=== PATIENT | female | born 1965 | race Caucasian/White ===

== ENCOUNTER 2019-07-17 11:16 | Observation (INO) ==
[2019-07-17] MEDS ORDERED: 0.9 % Sodium Chloride 1,000 ML ONE (11:25)
[2019-07-17] MEDS ORDERED: Isovue-370 500 ML BOTTLE IVP ONE ×2 (11:32)
--- NOTE | 2019-07-17 11:41 | Emergency Department Note ---
Disposition Clinical Impression: Chest pain Qualifiers: Chest pain type: unspecified Qualified Code(s): R07.9 - Chest pain, unspecified Disposition: Admitted As Inpatient Condition: Good Time of Disposition: 17:42 Chest Pain HPI - General Chief Complaint: ED Chest Pain Stated Complaint: Chest Pain Time Seen by Provider: 07/17/19 11:20 Source: patient, EMS Mode of arrival: EMS Limitations: no limitations Vital Signs Reviewed: Yes Nursing Notes Reviewed: Yes - History of Present Illness HPI Narrative: 53F with history of abdominal aneurysm which she thinks measured 4.8 cm, which may have been dx a few months ago, was recently hospitalized earlier this week at outside facility for hypokalemia, hypomagnesemia, and dehydration. Outside facility gave her fluids, replaced her electrolytes, and discharged her. Last night, in the middle of the night, she developed epigastric pain that radiates into her chest. She was not sleeping well, but she thinks it woke her from sleep. Since then, she has had abdominal pain. She also notes a one-year history of numbness and tingling in her hands and feet. She denies diabetes. She also notes that she has been lightheaded during the last year as well. Severity scale (1-10): 8 - Related Data Home Medications Medication Instructions Recorded Confirmed Aspirin [Lo-Dose Aspirin EC] 81 mg PO DAILY 07/17/19 07/17/19 Escitalopram [Lexapro] 20 mg PO DAILY 07/17/19 07/17/19 Furosemide [Lasix] 40 mg PO QAM 07/17/19 07/17/19 LORazepam [Ativan] 0.5 mg PO BID PRN 07/17/19 07/17/19 Lisinopril [Zestril] 40 mg PO DAILY 07/17/19 07/17/19 Pantoprazole Sodium [Protonix] 40 mg PO BID 07/17/19 07/17/19 Potassium Chloride [K-Tab ER] 20 meq PO DAILY 07/17/19 07/17/19 Promethazine [Phenergan] 25 mg PO Q6HR PRN 07/17/19 07/17/19 Allergies Allergy/AdvReac Type Severity Reaction Status Date / Time citalopram [From Celexa] Allergy Vomiting Verified 07/17/19 11:21 duloxetine [From Cymbalta] Allergy Vomiting Verified 07/17/19 11:21 Review of Systems: In addition to that documented in the HPI above, the additional ROS was obtained: Constitutional: Denies fevers or chills Eyes: Denies vision changes ENMT: Denies sore throat CV: Reports chest pain Resp: Denies SOB GI: Denies vomiting or diarrhea Reports nausea : Denies painful urination MSK: Denies recent trauma Skin: Denies new rashes Neuro: Denies new numbness or tingling or weakness - Reports stable numbness/tingling in feet, hands, that has been going on for a year Endocrine: Denies unexpected weight loss Heme: Denies bleeding disorders Chest Pain PMH - Past Medical History Medical history: Reports: hypertension, TIA Psychiatric history: Reports: anxiety, depression - Social History Smoking Status: Former smoker Alcohol use: Reports: none Drug use: Reports: none Physical Exam General: No acute distress. Well developed, well nourished. Head: atraumatic, normocephalic. ENT: No conjunctival injection, no scleral icterus. PERRLA. EOMI. Oropharynx non- erythematous. mucous membranes moist. Neuro: No focal deficits, no speech deficit, no facial droop, mentating well. BUE 5/5 Strength, BLE Str 4/5. Claudio UE/LE sensation intact. Cerebellar testing - ataxia evident in left upper extremity, could not perform heel to owusu because she states she is "too weak". CN II-XII intact. Pulm: Lungs CTAB A/P. No wheezes, rales, ronchi. Cardio: RRR no m/r/g. Chest mildly tender to palpation in xiphoid area. Abd: Soft, non-distended. Normoactive bowel sounds. Tender to palpation in ep igastric area. No guarding. Non rigid. Extremities: Radial pulses 2+ claudio, dorsalis pedis 2+ claudio. No LE edema. No cyanosis, clubbing. Skin: warm, dry, intact. No rashes. Psych: Appropriate mood and affect. Answers questions appropriately. Cooperative with exam. - General Limitations: no limitations General appearance: alert, in no apparent distress Course Vital Signs Temperature 98.7 F 07/17/19 11:21 Pulse Rate 111 07/17/19 11:21 Respiratory Rate 18 08/23/19 11:21 Blood Pressure 159/123 08/23/19 11:21 O2 Sat by Pulse Oximetry 100 07/17/19 11:21 Temperature 98 F 07/17/19 19:25 Pulse Rate 101 07/17/19 19:25 Respiratory Rate 18 07/17/19 19:25 Blood Pressure 107/78 07/17/19 19:25 O2 Sat by Pulse Oximetry 99 07/17/19 19:25 Oxygen Delivery Oxygen Delivery Room Air Chest Pain - MDM Narrative Medical decision making narrative: 1141: 53F with pmhx TIAs, HTN, AAA, that presents with epigastric pain radiating into her chest beginning overnight. Concern for stability of AAA exists, and she is ataxic with left UE, and unable to lift her claudio LE right now because of weakness. Will obtain CTA of Head, Neck, and Dissection study. Blood pressures are equal in claudio UE, but diastolic blood pressures elevated. Did not give aspirin as there was concern for dissection, will await CT study and then give aspirin. CT was negative for dissection, gave patient an aspirin. Pt remained ataxic, was found to have Hypokalemia, hypomagnesemic, hypocalcemic. Will replete electrolytes. Additionally, repeat EKG shows QT of 542, will administer calcium gluconate. Pt could benefit from further inpatient neurologic workup, will admit. Pt was admitted to hospitalist, Dr Cox, who agreed to accept the patient to her service. Results of the workup including any imaging and/or labwork was shared with the patient at bedside. Patient was given an opportunity to ask questions at bedside and all of their concerns were addressed. Patient verbalized understanding and agreement with plan of care. Pt remained stable while in the department. - Medical Records Medical records reviewed: Yes I reviewed the patient's medical records. - Lab Data Lab results reviewed: Yes I reviewed the patient's lab results. Result diagrams: 07/17/19 11:41 07/17/19 11:41 Lab Results 07/17/19 07/17/19 07/17/19 Range/Units 11:41 11:41 11:41 WBC 7.1 (4.3-11.1) K/mcL RBC 2.91 L (3.82-4.97) M/mcL Hgb 10.0 L (11.5-15.4) g/dL Hct 29.7 L (35.3-44.9) % MCV 102.1 H (83.0-100.0) fL MCH 34.4 H (28.0-33.3) pg MCHC 33.7 (31.6-35.5) g/dL RDW 16.4 H (11.5-14.5) % Plt Count 377 (140-400) K/mcL MPV 9.3 L (9.4-12.4) fL Immature Gran % 1.0 (0-4) % Seg Neutrophils % 63.9 % Lymphocytes % 20.6 % Monocytes % 13.2 % Eosinophils % 0.6 % Basophils % 0.7 % Neutrophils # 4.5 (1.6-8.9) K/mcL Lymphocytes # 1.5 (0.6-4.6) K/mcL Monocytes # 0.9 (0.0-1.3) K/mcL Eosinophils # 0.0 (0.0-0.6) K/mcL Basophils # 0.1 (0.0-0.2) K/mcL Sodium 137 (136-145) mEq/L Potassium 3.2 L (3.5-5.1) mEq/L Chloride 95 L (98-107) mEq/L Carbon Dioxide 30 H (23-29) mEq/L BUN 5 L (6-20) mg/dL Creatinine 0.51 L (0.60-1.20) mg/dL Est GFR ( Amer) > 60 (> 60) Est GFR (Non-Af Amer) > 60 (> 60) BUN/Creatinine Ratio 10 (6-26) Glucose 101 (70-105) mg/dL Calculated Osmolality 281 (280-300) Calcium 8.1 L (8.6-10.3) mg/dL Magnesium 1.4 L (1.6-2.6) mg/dL Troponin I < 0.03 (< 0.04) ng/mL TSH 4.159 (0.340-5.600) mcIU/mL Urine Color (Yellow) Urine Clarity (Clear) Urine pH (5.0-8.0) pH Units Ur Specific [place] (1.010-1.025) Urine Protein (Neg-Trace) mg/dL Urine Glucose (UA) (Normal) mg/dL Urine Ketones (Negative) mg/dL Urine Blood (Negative) Urine Nitrite (Negative) Urine Bilirubin (Negative) Urine Urobilinogen (Normal) mg/dL Ur Leukocyte Esterase (Negative) Urine Microscopic RBC (0-3) per hpf Urine Microscopic WBC (0-3) per hpf Ur Squamous Epith Cells (None-Few) per lpf Urine Bacteria (None-Few) per hpf Hyaline Casts (None-Few) per lpf Ur Culture Indicated? (NO) 07/17/19 Range/Units 12:04 WBC (4.3-11.1) K/mcL RBC (3.82-4.97) M/mcL Hgb (11.5-15.4) g/dL Hct (35.3-44.9) % MCV (83.0-100.0) fL MCH (28.0-33.3) pg MCHC (31.6-35.5) g/dL RDW (11.5-14.5) % Plt Count (140-400) K/mcL MPV (9.4-12.4) fL Immature Gran % (0-4) % Seg Neutrophils % % Lymphocytes % % Monocytes % % Eosinophils % % Basophils % % Neutrophils # (1.6-8.9) K/mcL Lymphocytes # (0.6-4.6) K/mcL Monocytes # (0.0-1.3) K/mcL Eosinophils # (0.0-0.6) K/mcL Basophils # (0.0-0.2) K/mcL Sodium (136-145) mEq/L Potassium (3.5-5.1) mEq/L Chloride (98-107) mEq/L Carbon Dioxide (23-29) mEq/L BUN (6-20) mg/dL Creatinine (0.60-1.20) mg/dL Est GFR ( Amer) (> 60) Est GFR (Non-Af Amer) (> 60) BUN/Creatinine Ratio (6-26) Glucose (70-105) mg/dL Calculated Osmolality (280-300) Calcium (8.6-10.3) mg/dL Magnesium (1.6-2.6) mg/dL Troponin I (< 0.04) ng/mL TSH (0.340-5.600) mcIU/mL Urine Color Yellow (Yellow) Urine Clarity Cloudy A (Clear) Urine pH 8.0 (5.0-8.0) pH Units Ur Specific [place] < 1.005 L (1.010-1.025) Urine Protein Negative (Neg-Trace) mg/dL Urine Glucose (UA) Normal (Normal) mg/dL Urine Ketones Negative (Negative) mg/dL Urine Blood Negative (Negative) Urine Nitrite Negative (Negative) Urine Bilirubin Negative (Negative) Urine Urobilinogen Normal (Normal) mg/dL Ur Leukocyte Esterase Large H (Negative) Urine Microscopic RBC 0-3 (0-3) per hpf Urine Microscopic WBC TNTC H (0-3) per hpf Ur Squamous Epith Cells Many H (None-Few) per lpf Urine Bacteria Many H (None-Few) per hpf Hyaline Casts None Seen (None-Few) per lpf Ur Culture Indicated? YES A (NO) - Radiology Data Radiology results reviewed: Yes I reviewed the patient's radiology results. Chest X-Ray 07/17/19 11:21 IMPRESSION: No acute cardiopulmonary disease. D/ / 07/17/2019 11:59:18 Inderjit Cope MD / Louise Colón Interpreting Provider: Inderjit Cope MD Dissection 07/17/19 11:32 IMPRESSION: 1. No evidence thoracic aortic dissection. There is aneurysmal dilation of the ascending thoracic aorta as described above. 2. No evidence of abdominal aortic aneurysm or dissection. 3. No acute cardiopulmonary process. 4. Emphysema. 5. Severe fatty infiltration of the liver. 6. Mild colonic diverticulosis without evidence of diverticulitis. 7. Status post hysterectomy. 8. No acute process in the abdomen/pelvis identified. D/ / Amarjit Swain MD / Amarjit Swain MD Interpreting Provider: Amarjit Swain MD Head CTA 07/17/19 11:32 IMPRESSION: No intracranial large artery focal high-grade stenosis, occlusion or aneurysm. No stenosis of the bilateral cervical internal carotid arteries per NASCET criteria. Bilateral carotid bulb atherosclerotic plaque. Patent bilateral vertebral arteries. Mild chronic small vessel ischemic disease. Small old right putamen remote lacunar infarct. No acute intracranial hemorrhage. D/ / Eren Sessions / Eren Sessions Interpreting Provider: Eren Sessions Neck CTA 07/17/19 11:32 IMPRESSION: No intracranial large artery focal high-grade stenosis, occlusion or aneurysm. No stenosis of the bilateral cervical internal carotid arteries per NASCET criteria. Bilateral carotid bulb atherosclerotic plaque. Patent bilateral vertebral arteries. Mild chronic small vessel ischemic disease. Small old right putamen remote lacunar infarct. No acute intracranial hemorrhage. D/ / Eren Sessions / Eren Sessions Interpreting Provider: Eren Sessions - EKG Data EKG attestation: Yes I reviewed and interpreted this EKG. EKG results narrative: Sinus tachycardia with a rate of 118 without evidence of STEMI or other dysrhythmia. QTC of 501 and prolonged, other intervals WNL. No ST segment elevation or depression. 1652: HR 101, rhythm sinus tachycardia, axis normal. [place] 150, QRS 93, QTc [address] elevation or depression. Heart Score - Score History: Moderately Suspicious EKG: Normal Age: 45-65 Risk Factors: 1-2 risk factors Troponin: Less than normal limit HEART Score Total: 3 Attestation Statement - Attestation Attestation: I, Garrison Dawkins, examined this patient and my medical decision-making was reviewed with the CLINICAL LABORATORY SERVICE TEACHER/PA/Advanced Practice Nurse/Resident Physician. I agree with the documented findings, disposition and treatment plan as described except to the extent set forth below. 53-year-old female presents emergency Department with concerns of chest pain as well as weakness, fatigue, paresthesias in the bilateral upper and lower extremities and difficulty with ambulation. Patient states she has difficulty with feeding herself as she has poor coordination. Patient states that this is occurred over the past 1-2 weeks. She was admitted to [facility] for evaluation of epigastric pain. She had repeat troponins which were negative and was diagnosed with hypokalemia, hypomagnesemia. Patient is mildly tachycardic on initial evaluation today. She does not have evidence of STEMI. She reported pain in her chest and states that she has a history of aortic aneurysm. She had equal bilateral upper extremity blood pressures which were elevated but equal. Patient was given IV fluids and pain medication which improved her blood pressure and her heart rate. Patient care was delayed because of inability to obtain CT secondary to lack of IV access. During evaluation the patient noted that she has been having difficulty with ambulation is fallen multiple times at home. She failed the finger to nose testing on our exam in the emergency department. We obtained a CT of the head, neck to rule out vertebral artery dissection as well as possible intracranial hemorrhage from trauma versus str vita. Patient does report having vertiginous symptoms with movement of her head. CT shows aneurysm which has not significantly changed from previous. There is no evidence of dissection. Patient was updated regarding laboratory and CT results. Patient will be admitted to the hospitalist for further care and evaluation.
[2019-07-17 11:53] LABS: Basophils # 0.1 K/mcL (0.0-0.2); Basophils % 0.7 %; Eosinophils % 0.6 %; Hematocrit 29.7 % (35.3-44.9); Lymphocytes # 1.5 K/mcL (0.6-4.6); Lymphocytes % 20.6 %; Mean Corpuscular HGB Conc 33.7 g/dL (31.6-35.5); Mean Corpuscular Hemoglobin 34.4 pg (28.0-33.3); Mean Corpuscular Volume 102.1 fL (83.0-100.0); Mean Platelet Volume 9.3 fL (9.4-12.4); Monocytes # 0.9 K/mcL (0.0-1.3); Monocytes % 13.2 %; Neutrophils # 4.5 K/mcL (1.6-8.9); Platelet Count 377 K/mcL (140-400); Red Blood Count 2.91 M/mcL (3.82-4.97); Red Cell Distribution Width 16.4 % (11.5-14.5); Segmented Neutrophils % 63.9 %; White Blood Count 7.1 K/mcL (4.3-11.1)
[2019-07-17 12:14] LABS: Bilirubin,Urine Negative (Negative); Blood,Urine Negative (Negative); Clarity,Urine Cloudy (Clear); Color,Urine Yellow (Yellow); Glucose,Urine (UA) Normal (Normal); Ketones,Urine Negative (Negative); Leukocyte Esterase,Urine Large (Negative); Nitrite,Urine Negative (Negative); Protein,Urine Negative (Neg-Trace); Specific Gravity,Urine < 1.005 (1.010-1.025); Urobilinogen,Urine Normal (Normal)
[2019-07-17 12:15] LABS: Magnesium 1.4 mg/dL (1.6-2.6)
[2019-07-17 12:15] LABS: Bacteria,Urine Many per hpf (None-Few); Hyaline Casts,Urine None Seen per lpf (None-Few); RBC,Urine 0-3 per hpf (0-3); Squamous Epithelial Cell,Urine Many per lpf (None-Few); WBC,Urine TNTC per hpf (0-3)
[2019-07-17 12:16] LABS: BUN/Creatinine Ratio 10 (6-26); Blood Urea Nitrogen 5 mg/dL (6-20); Calcium 8.1 mg/dL (8.6-10.3); Carbon Dioxide 30 mEq/L (23-29); Chloride 95 mEq/L (98-107); Glucose 101 mg/dL (70-105); Osmolality,Calculated 281 (280-300); Potassium 3.2 mEq/L (3.5-5.1); Sodium 137 mEq/L (136-145); Troponin I < 0.03 ng/mL (< 0.04); eGFR For African Americans > 60 (> 60); eGFR For Non-African Americans > 60 (> 60)
[2019-07-17] MEDS ORDERED: Morphine Sulfate 2 MG/ML SYRINGE IVP ONE (12:53)
[2019-07-17] MEDS ORDERED: Ondansetron 4 MG/2 ML VIAL IVP ONE (12:54)
[2019-07-17 13:10] LABS: Thyroid Stimulating Hormone 4.159 mcIU/mL (0.340-5.600)
[2019-07-17] MEDS ORDERED: 0.9 % Sodium Chloride 1,000 ML IVC ONE (15:03)
[2019-07-17] MEDS ORDERED: *HR* HYDROmorphone (PF) 1 MG/ML SYRINGE IVP ONE (15:37)
[2019-07-17] MEDS ORDERED: Calcium Gluconate 1gm/50mL 2 G/100 ML BAG IVPB ONE (16:53)
[2019-07-17] MEDS ORDERED: Magnesium Sulfate 1 GM in D5% in Water 100 ML IVPB ONE (16:53)
[2019-07-17] MEDS ORDERED: cefTRIAXone 1,000 MG in Water for inj. (sterile) 10 ML IVP ONE (16:58)
[2019-07-17] MEDS ORDERED: Calcium Gluconate 1gm/50mL 2 GM/100 ML BAG IVPB ONE (17:03)
--- NOTE | 2019-07-17 17:30 | Internal Med History&Physical ---
Date of Encounter: 07/17/19 Time of Encounter: 18:00 Internal Medicine - H&P: HPI Chief complaint: Epigastric pain Admitted From: Emergency Dept Plans for Post Hospital Care: Home History of present illness: Ms. Lock is a 53 year old female with a past medical history significant for GERD, hypertension, presented to the emergency department because of the chest pain, there has been there for almost a year, worsened last night. Patient describes the pain in the onset last night, midsternal, nonradiating, no aggra vating or relieving factors, feels like pressure. Patient has been having this pain for almost a year. Endorses nausea associated with the pain. Denies any vertigo. Denies history of WI, orthopnea, exertional dyspnea. Patient also complains of numbness and tingling sensation in her hands and feet for almost one year which has been progressively worsening. She feels that she has been losing her strength and her hands and feet are very weak. She also complains that sometimes she drops things because of the weakness. Patient is currently in the outside hospital because of electrolyte abnormalities, repleted and was discharged. Patient otherwise hemodynamically stable in the ED. Because of the concern of stroke, patient got a CT scan of the head and neck. CAT scan of the head was negative for any bleeding. CTA was negative for any high-grade stenosis, lesion or aneurysm. She also got CTA of the chest dissection protocol because of the history of aortic aneurysm. CTA did not show any dissection. Aneurysm measuring 4.2 cm of ascending aorta was noted that she has been present previously. There was also severe fatty infiltration of the liver. Lab work was positive for anemia, hypokalemia. UA showed leukocyte esterase activity. Patient was admitted for further management. Past Med Surg Social Fam HX - Past Medical History Medical history: hypertension, TIA Additional medical history: AAA 4.8CM Psychiatric history: anxiety, depression - Past Surgical History Surgical History: no surgical history - Social History Smoking Status: Former smoker Smokeless Tobacco Status: No Alcohol use: none Drug use: none - Additional Family History Additional family history: Patient mother is healthy without any heart problems. Patient father of WI at the age of 48. Internal Medicine - H&P: Meds Allergy/AdvReac Type Severity Reaction Status Date / Time citalopram [From Celexa] Allergy Vomiting Verified 07/17/19 11:21 duloxetine [From Cymbalta] Allergy Vomiting Verified 07/17/19 11:21 All Systems PM: A 10-system review of systems was performed and is negative for pertinent fi ndings except as documented above in the HPI. Review of systems: General: Negative for fever, chills, rigors. HEENT: Negative for neck swelling, discharge from nose, discharge from ears. EYES: Negative for any discharge from the eyes. Respiratory: Negative for shortness of breath, orthopnea, exertional dyspnea. Cardiovascular: See HPI Gastrintestical: See HPI Genitourinary: Negative for dysuria, hematuria, nocturia, increased frequency of urine. Hematological: Negative for blood loss, negative for active cancer. Neurological: Negative for headache, dizziness, blurry vision, loss os power and sensations. Endocrinology: Negative for constipation, polyuria, polydipsia. Integumentary: Negative for rash, wounds, ulcers. Psychiatric: Negative for anxiety or depression. - Constitutional Vitals: Temp Pulse Resp BP Pulse Ox 98.7 F 101 18 121/98 98 07/17/19 11:21 07/17/19 15:37 07/17/19 15:37 07/17/19 15:37 07/17/19 15:37 Exam: General: Alert and oriented, no physical distress, able to follow commands. HEENT: No thyromegaly, no lymphadenopathy, no discharge. Eyes: No discharge. Normal conjuctiva, no icterus Respiratory: Normal vesicular breathing, no added sounds, breathing equal in both sides. CVS: Normal heart sounds, no murmurs, regular rhthm, no edema Extremities: No peripheral edema, peripheral pulses intact. Lymph nodes: No lymphadenopathy Gastrointestinal: Soft, nontender abdomen, normal abdominal sounds. No distention noted. Genitourinary: No paravertebral tenderness. Skin: No rash, ulcers or wound. Neurological: Alert and oriented. No focal deficits. Cranial nerves II-XII intact. Internal Med - H&P Results - Labs CBC & Chem 7: 07/17/19 11:41 07/17/19 11:41 Labs: Short CBC 07/17/19 Range/Units 11:41 WBC 7.1 (4.3-11.1) K/mcL Hgb 10.0 L (11.5-15.4) g/dL Hct 29.7 L (35.3-44.9) % Plt Count 377 (140-400) K/mcL Neutrophils # 4.5 (1.6-8.9) K/mcL BMP 07/17/19 11:41 Sodium 137 Potassium 3.2 L Chloride 95 L Carbon Dioxide 30 H BUN 5 L Creatinine 0.51 L Glucose 101 Calcium 8.1 L Cardiac Enzymes 07/17/19 Range/Units 11:41 Troponin I < 0.03 (< 0.04) ng/mL Urine 07/17/19 Range/Units 12:04 Urine Color Yellow (Yellow) Urine Clarity Cloudy A (Clear) Urine pH 8.0 (5.0-8.0) pH Units Ur Specific [place] < 1.005 L (1.010-1.025) Urine Protein Negative (Neg-Trace) mg/dL Urine Glucose (UA) Normal (Normal) mg/dL - Impressions ITS Impressions Chest X-Ray 07/17/19 11:21 IMPRESSION: No acute cardiopulmonary disease. D/ / 07/17/2019 11:59:18 Inderjit Cope MD / Louise Colón Interpreting Provider: Inderjit Cope MD Dissection 07/17/19 11:32 IMPRESSION: 1. No evidence thoracic aortic dissection. There is aneurysmal dilation of the ascending thoracic aorta as described above. 2. No evidence of abdominal aortic aneurysm or dissection. 3. No acute cardiopulmonary process. 4. Emphysema. 5. Severe fatty infiltration of the liver. 6. Mild colonic diverticulosis without evidence of diverticulitis. 7. Status post hysterectomy. 8. No acute process in the abdomen/pelvis identified. D/ / Amarjit Swain MD / Amarjit Swain MD Interpreting Provider: Amarjit Swain MD Head CTA 07/17/19 11:32 IMPRESSION: No intracranial large artery focal high-grade stenosis, occlusion or aneurysm. No stenosis of the bilateral cervical internal carotid arteries per NASCET criteria. Bilateral carotid bulb atherosclerotic plaque. Patent bilateral vertebral arteries. Mild chronic small vessel ischemic disease. Small old right putamen remote lacunar infarct. No acute intracranial hemorrhage. D/ / Eren Sessions / Eren Sessions Interpreting Provider: Eren Estes Neck CTA 07/17/19 11:32 IMPRESSION: No intracranial large artery focal high-grade stenosis, occlusion or aneurysm. No stenosis of the bilateral cervical internal carotid arteries per NASCET criteria. Bilateral carotid bulb atherosclerotic plaque. Patent bilateral vertebral arteries. Mild chronic small vessel ischemic disease. Small old right putamen remote lacunar infarct. No acute intracranial hemorrhage. D/ / Eren Sessions / Eren Sessions Interpreting Provider: Eren Estes - Assessment and Plan (1) Chest pain Current Visit: Yes Status: Acute Assessment and plan: -EKG did not show any ischemic changes. Troponin levels were normal. Patient currently denies chest pain. Low probability for ACS. Obtained echocardiography. Continue aspirin. Depending upon the echocardiographic results, will decide about a cardiology consult. Qualifiers: Chest pain type: unspecified Qualified Code(s): R07.9 - Chest pain, unspecified (2) UTI (urinary tract infection) Current Visit: Yes Status: Acute Assessment and plan: UA positive. Urine cultures pending. Start the patient on ceftriaxone. Qualifiers: Urinary tract infection type: site unspecified Hematuria presence: without hematuria Qualified Code(s): N39.0 - Urinary tract infection, site not sp ecified (3) Abnormal EKG Current Visit: Yes Status: Acute Assessment and plan: Prolonged QTC of 542 after giving the patient ondansetron avoid QTC prolonging drugs. Patient was given calcium gluconate and magnesium sulfate in the ED. telemetry. Optimize electrolytes. (4) Nausea Current Visit: Yes Status: Acute Assessment and plan: Phenergan for the nausea. Avoid Zofran. (5) Weakness of distal arms and legs Current Visit: Yes Status: Acute Assessment and plan: Etiology is unclear. Progressive worsening. We will obtain folate and vitamin B12 levels. Because of the history of TIA, and the patient nausea, updated MRI of the brain to rule out any stroke. Neurology consult. PT/OT. (6) Smoking addiction Current Visit: Yes Status: Acute Assessment and plan: According to the patient, she quit smoking yesterday. Smokes 3 packs per day. Nicotine patches noted. Counseled about the adverse effect of smoking. (7) Alcohol abuse Current Visit: Yes Status: Acute Assessment and plan: CT scan scan consistent with fatty infiltration of the liver. -Patient has been drinking alcohol for a long time. According to her, she is no drink anymore. No signs of withdrawal at this point. Continue to monitor. obtain liver function test tomorrow. (8) Anemia Current Visit: Yes Status: Acute Assessment and plan: Etiology unclear. -Patient mentioned that she had EGD this year which showed some bleeding but it was probably fixed. Obtain iron studies. Obtain B12 and folate. -No signs of active bleeding. Qualifiers: Anemia type: unspecified type Qualified Code(s): D64.9 - Anemia, unspecified (9) Hypokalemia Current Visit: Yes Status: Acute Assessment and plan: Potassium of 3.2 at the presentation. Etiology unclear. Continue to repeat. -Repeat The level tomorrow. (10) Hypomagnesemia Current Visit: Yes Status: Acute Assessment and plan: -Mag of 1.4 -Rpeleted in ED -Pratima contributing to the QTc -Repeat levels tomorrow (11) AAA (abdominal aortic aneurysm) Current Visit: Yes Status: Acute Assessment and plan: -Hx of AAA -Stabke -Advised to quit smoking -Outpt follow up recommended Qualifiers: Presence of rupture: without rupture Qualified Code(s): I71.4 - Abdominal aortic aneurysm, without rupture - Time Spent With Patient Total time spent is greater than 50% in coordination of care (as documented) at patient's floor/unit and/or counseling patient:
[2019-07-17] MEDS ORDERED: Aspirin 325 MG TABLET PO ONE (17:35)
[2019-07-17] MEDS ORDERED: Naloxone 0.4 MG/ML INJ IVP PRN (17:55)
[2019-07-17] MEDS ORDERED: traMADol 50 MG TABLET PO PRN (17:55)
[2019-07-17] MEDS ORDERED: *HR* OxyCODONE Immed Rel 5 MG TABLET PO PRN (17:55)
[2019-07-17] MEDS ORDERED: Acetaminophen 325 MG TABLET PO PRN (17:55)
[2019-07-17] MEDS: *HR* Heparin 5,000 UNIT/ML VIAL SQ SCH (19:41)
[2019-07-17] MEDS: Ringers Solution, Lactated 1,000 ML IVC SCH (19:43)
[2019-07-17] MEDS: Nicotine 21 MG PATCH.TD24 TD SCH (19:43)
[2019-07-17] MEDS: *HR* Promethazine 25 MG/ML VIAL IVP PRN (19:49)
[2019-07-17] MEDS ORDERED: *HR* LORazepam 0.5 MG TABLET PO ONE (21:31)
[2019-07-17] MEDS: *HR* HYDROcodone/Acet 5/325 mg TABLET PO PRN (23:06)
[2019-07-18 01:31] LABS: Basophils # 0.1 K/mcL (0.0-0.2); Basophils % 1.4 %; Eosinophils # 0.2 K/mcL (0.0-0.6); Eosinophils % 2.3 %; Hematocrit 27.6 % (35.3-44.9); Immature Granulocytes % 0.6 % (0-4); Lymphocytes # 2.8 K/mcL (0.6-4.6); Lymphocytes % 40.3 %; Mean Corpuscular HGB Conc 32.6 g/dL (31.6-35.5); Mean Corpuscular Volume 107.4 fL (83.0-100.0); Mean Platelet Volume 9.3 fL (9.4-12.4); Monocytes # 0.9 K/mcL (0.0-1.3); Monocytes % 12.9 %; Neutrophils # 2.9 K/mcL (1.6-8.9); Platelet Count 338 K/mcL (140-400); Red Blood Count 2.57 M/mcL (3.82-4.97); Red Cell Distribution Width 16.8 % (11.5-14.5); Segmented Neutrophils % 42.5 %; White Blood Count 6.9 K/mcL (4.3-11.1)
[2019-07-18 01:37] LABS: Prothrombin Time 11.8 Seconds (9.4-12.1)
[2019-07-18 01:40] LABS: Activated Partial Thrombo Time 29.7 Seconds (26.0-36.0)
[2019-07-18 01:50] LABS: Albumin 2.5 g/dL (3.5-5.7); Albumin/Globulin Ratio 1.1 (1.1-2.2); Bilirubin,Direct 0.7 mg/dL (0.0-0.2); Bilirubin,Indirect 0.5 mg/dL (0.0-1.2); Bilirubin,Total 1.2 mg/dL (0.3-1.0); Globulin 2.3 g/dL (2.4-3.5); Total Protein 4.8 g/dL (6.4-8.9)
[2019-07-18 01:56] LABS: % Iron Saturation 48 % (15-50); BUN/Creatinine Ratio 7 (6-26); Blood Urea Nitrogen 4 mg/dL (6-20); Calcium 8.1 mg/dL (8.6-10.3); Carbon Dioxide 22 mEq/L (23-29); Chloride 104 mEq/L (98-107); Glucose 90 mg/dL (70-105); Iron 72 mcg/dL (50-170); Magnesium 1.8 mg/dL (1.6-2.6); Osmolality,Calculated 282 (280-300); Phosphorous 4.3 mg/dL (2.7-4.5); Potassium 4.4 mEq/L (3.5-5.1); Sodium 138 mEq/L (136-145); Transferrin 107 mg/dL (203-362); eGFR For African Americans > 60 (> 60); eGFR For Non-African Americans > 60 (> 60)
[2019-07-18 02:14] LABS: Folate 2.5 ng/mL (3.0-16.0)
[2019-07-18 02:17] LABS: Ferritin 271 ng/mL (10-120)
[2019-07-18] MEDS: *HR* Promethazine 25 MG/ML VIAL IVP PRN (03:56)
[2019-07-18] MEDS: *HR* Heparin 5,000 UNIT/ML VIAL SQ SCH ×2 (05:42→18:18)
[2019-07-18] MEDS: *HR* HYDROcodone/Acet 5/325 mg TABLET PO PRN ×3 (05:47→18:15)
[2019-07-18] MEDS ORDERED: Perflutren Lipid Microsphere 1.3 ML in 0.9 % Sodium Chloride 8.7 ML IVP ONE (07:22)
[2019-07-18] MEDS ORDERED: Folic Acid 1 MG in D5% in Water 50 ML IVPB STA (08:00)
[2019-07-18] MEDS ORDERED: Lisinopril 20 MG TABLET PO SCH (09:00)
[2019-07-18] MEDS ORDERED: Aspirin 81 MG TAB.CHEW PO SCH (09:00)
[2019-07-18 09:34] LABS: Basophils # 0.1 K/mcL (0.0-0.2); Basophils % 1.3 %; Eosinophils # 0.1 K/mcL (0.0-0.6); Eosinophils % 2.2 %; Hematocrit 28.2 % (35.3-44.9); Immature Granulocytes % 0.6 % (0-4); Lymphocytes # 2.3 K/mcL (0.6-4.6); Lymphocytes % 42.5 %; Mean Corpuscular HGB Conc 31.9 g/dL (31.6-35.5); Mean Corpuscular Hemoglobin 34.9 pg (28.0-33.3); Mean Corpuscular Volume 109.3 fL (83.0-100.0); Mean Platelet Volume 9.4 fL (9.4-12.4); Monocytes # 0.7 K/mcL (0.0-1.3); Monocytes % 12.6 %; Neutrophils # 2.2 K/mcL (1.6-8.9); Platelet Count 367 K/mcL (140-400); Red Blood Count 2.58 M/mcL (3.82-4.97); Red Cell Distribution Width 16.9 % (11.5-14.5); Segmented Neutrophils % 40.8 %; White Blood Count 5.4 K/mcL (4.3-11.1)
[2019-07-18] MEDS: Nicotine 21 MG PATCH.TD24 TD SCH (09:41)
[2019-07-18] MEDS: Thiamine (B-1) 100 MG in D5% in Water 50 ML IVPB SCH (09:41)
[2019-07-18] MEDS ORDERED: *HR* LORazepam 1 MG TABLET PO PRN (09:52)
[2019-07-18] MEDS ORDERED: *HR* LORazepam 2 MG/ML VIAL IVP PRN (10:54)
--- NOTE | 2019-07-18 11:29 | Internal Med Progress Note ---
Hospitalist Progress Note - Encounter Date of Encounter: 07/18/19 Time of Encounter: 11:00 - Subjective Interval History: Patient was seen at bedside. Complaining of the epigastric pain. Also having the tremors. Denies shortness of breath. Endorses pain in the hands and feet which have been there previously but no relief in them. Denies dizziness. Denies fever, chills, rigors. No acute overnight events. - Exam Vitals: Temp Pulse Resp BP Pulse Ox 97.6 F 101 16 144/87 100 07/18/19 07:20 07/18/19 07:20 07/18/19 07:20 07/18/19 07:20 07/18/19 07:20 Exam: General: Alert and oriented, no physical distress, able to follow commands. HEENT: No thyromegaly, no lymphadenopathy, no discharge. Eyes: No discharge. Normal conjuctiva, no icterus Respiratory: Normal vesicular breathing, no added sounds, breathing equal in both sides. CVS: Normal heart sounds, no murmurs, regular rhthm, no edema Extremities: No peripheral edema, peripheral pulses intact. Lymph nodes: No lymphadenopathy Gastrointestinal: Soft, nontender abdomen, normal abdominal sounds. No distention noted. Genitourinary: No paravertebral tenderness. Skin: No rash, ulcers or wound. Neurological: Alert and oriented. No focal deficits. Cranial nerves II-XII intact. - Assessment and Plan (1) Weakness of distal arms and legs Current Visit: Yes Status: Acute Assessment and Plan: Etiology is unclear. 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 Patient folic acid levels are very low, she is also having macrocytic anemia. Patient mentions that she has been drinking for the past 1-2 years of good amount of alcohol but denies any drinking last 2-3 weeks. Most likely, patient has been drinking considering the progressive worsening of neuropathy and as the patient is showing signs of withdrawal. . Full details are very low at 2.5. Vitamin D level is normal. MRI of the head was negative. Neurology on board. Appreciate recommendations. PT/OT recommending rehabilitation. Patient will need transfer to rehabilitation facility. At this point considering the patient is having the pain and the weakness of the distal arms and eczema start the patient on gabapentin 100 mg at bedtime for the neuropathy. Advised the patient to avoid alcohol. (2) Chest pain Current Visit: Yes Status: Acute Assessment and Plan: -EKG did not show any ischemic changes. Troponin levels were normal. Patient currently denies chest pain. Low probability for ACS. Echocardiography also did not show any wall motion abnormalities and a normal ejection fraction. Continue to monitor.. (3) UTI (urinary tract infection) Current Visit: Yes Status: Acute Assessment and Plan: UA positive. Urine cultures pending. Continue the patient on ceftriaxone. (4) Abnormal EKG Current Visit: Yes Status: Acute Assessment and Plan: Had prolonged QTC which have been resolving. avoid QTC prolonging drugs. Optimize electrolytes. (5) Nausea Current Visit: Yes Status: Acute Assessment and Plan: Phenergan for the nausea. Avoid Zofran. (6) Smoking addiction Current Visit: Yes Status: Acute Assessment and Plan: According to the patient, she quit smoking yesterday. Smokes 3 packs per day. Nicotine patches ordered Counseled about the adverse effect of smoking. (7) Alcohol abuse Current Visit: Yes Status: Acute Assessment and Plan: CT scan scan consistent with fatty infiltration of the liver. AST elevated. elevated alkaline phosphatase and bilirubin. Advised the patient to quit drinking. -outpatient follow-up with a milk tester. Because of the signs of withdrawl, patient has been started on CIWA protocol. (8) Anemia Current Visit: Yes Status: Acute Assessment and Plan: Likley due to folic acid deficieicny -Ordered folic acid repletion. (9) Hypokalemia Current Visit: Yes Status: Acute Assessment and Plan: Normal levels today -Repeat levels tomorrow (10) Hypomagnesemia Current Visit: Yes Status: Acute Assessment and Plan: -Mag of 1.8 tday -Contnue to monitor (11) AAA (abdominal aortic aneurysm) Current Visit: Yes Status: Acute Assessment and Plan: -Hx of AAA -Stabke -Advised to quit smoking -Outpt follow up recommended - Time Spent with Patient Total time spent is greater than 50% in coordination of care (as documented) at patient's floor/unit and/or counseling patient: Internal Medicine: Result - Labs CBC & Chem 7: 07/18/19 08:46 07/18/19 00:26 Labs: Short CBC 07/17/19 07/18/19 07/18/19 Range/Units 11:41 00:26 08:46 WBC 7.1 6.9 5.4 (4.3-11.1) K/mcL Hgb 10.0 L 9.0 L 9.0 L (11.5-15.4) g/dL Hct 29.7 L 27.6 L 28.2 L (35.3-44.9) % Plt Count 377 338 367 (140-400) K/mcL Neutrophils # 4.5 2.9 2.2 (1.6-8.9) K/mcL BMP 07/17/19 07/18/19 11:41 00:26 Sodium 137 138 Potassium 3.2 L 4.4 D Chloride 95 L 104 Carbon Dioxide 30 H 22 L BUN 5 L 4 L Creatinine 0.51 L 0.55 L Glucose 101 90 Calcium 8.1 L 8.1 L Cardiac Enzymes 07/17/19 Range/Units 11:41 Troponin I < 0.03 (< 0.04) ng/mL Liver Function 07/18/19 Range/Units 00:26 Total Bilirubin 1.2 H (0.3-1.0) mg/dL Direct Bilirubin 0.7 H (0.0-0.2) mg/dL AST 54 H (13-39) Units/L ALT 29 (7-52) Units/L Alkaline Phosphatase 119 H (34-104) Units/L Albumin 2.5 L (3.5-5.7) g/dL Urine 07/17/19 Range/Units 12:04 Urine Color Yellow (Yellow) Urine Clarity Cloudy A (Clear) Urine pH 8.0 (5.0-8.0) pH Units Ur Specific [place] < 1.005 L (1.010-1.025) Urine Protein Negative (Neg-Trace) mg/dL Urine Glucose (UA) Normal (Normal) mg/dL - ABG Interpretation ABG results: PT/INR, D-dimer PT 11.8 Seconds (9.4-12.1) 07/18/19 00:26 - Impressions Impressions Chest X-Ray 07/17/19 11:21 IMPRESSION: No acute cardiopulmonary disease. D/ / 07/17/2019 11:59:18 Inderjit Cope MD / Louise Colón Interpreting Provider: Inderjit Cope MD Dissection 07/17/19 11:32 IMPRESSION: 1. No evidence thoracic aortic dissection. There is aneurysmal dilation of the ascending thoracic aorta as described above. 2. No evidence of abdominal aortic aneurysm or dissection. 3. No acute cardiopulmonary process. 4. Emphysema. 5. Severe fatty infiltration of the liver. 6. Mild colonic diverticulosis without evidence of diverticulitis. 7. Status post hysterectomy. 8. No acute process in the abdomen/pelvis identified. D/ / Amarjit Swain MD / Amarjit Swain MD Interpreting Provider: Amarjit Swain MD Head CTA 07/17/19 11:32 IMPRESSION: No intracranial large artery focal high-grade stenosis, occlusion or aneurysm. No stenosis of the bilateral cervical internal carotid arteries per NASCET criteria. Bilateral carotid bulb atherosclerotic plaque. Patent bilateral vertebral arteries. Mild chronic small vessel ischemic disease. Small old right putamen remote lacunar infarct. No acute intracranial hemorrhage. D/ / Eren Sessions / Eren Sessions Interpreting Provider: Eren Estes Neck CTA 07/17/19 11:32 IMPRESSION: No intracranial large artery focal high-grade stenosis, occlusion or aneurysm. No stenosis of the bilateral cervical internal carotid arteries per NASCET criteria. Bilateral carotid bulb atherosclerotic plaque. Patent bilateral vertebral arteries. Mild chronic small vessel ischemic disease. Small old right putamen remote lacunar infarct. No acute intracranial hemorrhage. D/ / Eren Sessions / Eren Sessions Interpreting Provider: Eren Estes Echocardiogram 07/17/19 17:59 Impressions: LVEF 60%. Normal LV chamber size, wall thickness and function. Normal left ventricular diastolic function. Normal right ventricular structure and function. No evidence of PFO with agitated saline contrast. No evidence of pulmonary hypertension. No significant valvular dysfunction Findings: Study Quality * Technically sub-optimal due to poor echocardiographic windows. ECG Findings * Sinus tachycardia. Left Ventricle * LVEF 60%. * Normal LV chamber size, wall thickness and function. * Normal left ventricular diastolic function. Right Ventricle * Normal right ventricular structure and function. Left Atrium * Normal left atrial size. Right Atrium * Normal right atrial size. Interatrial Septum * No evidence of PFO with agitated saline contrast. Aortic Valve * Aortic valve not well visualized. * No aortic regurgitation. * No aortic stenosis. Mitral Valve * No mitral stenosis. * No mitral regurgitation. * Normal mitral valve structure. Tricuspid Valve * Normal tricuspid valve structure. * Trace tricuspid regurgitation. * No tricuspid stenosis. * No evidence of pulmonary hypertension. Pulmonic Valve * Pulmonic valve not well visualized. Aorta * Normally sized aortic root. Pericardium * The pericardium appears normal. IVC * The IVC is not well evaluated. Pulmonary Artery * Pulmonary artery not well visualized. Brain MRI 07/17/19 18:00 IMPRESSION: No acute infarct. D/ / Garland Ybarra MD / Garland Ybarra MD Interpreting Provider: Garland Ybarra MD Consult Discharge Plan - Plan Referrals: Kaleigh Morrison CNP [Primary Care Provider] - (2) Chest pain Qualifiers: Chest pain type: unspecified Qualified Code(s): R07.9 - Chest pain, unspecified (3) UTI (urinary tract infection) Qualifiers: Urinary tract infection type: site unspecified Hematuria presence: without hematuria Qualified Code(s): N39.0 - Urinary tract infection, site not specified (8) Anemia Qualifiers: Anemia type: folate deficiency Folate deficiency anemia type: drug-induced Qualified Code(s): D52.1 - Drug-induced folate deficiency anemia (11) AAA (abdominal aortic aneurysm) Qualifiers: Presence of rupture: without rupture Qualified Code(s): I71.4 - Abdominal aortic aneurysm, without rupture
[2019-07-18] MEDS: *HR* LORazepam 2 MG/ML VIAL IVP PRN ×3 (11:56→20:09)
--- NOTE | 2019-07-18 13:37 | Neurology - Consult Note ---
Date of Encounter: 07/18/19 Time of Encounter: 13:33 Assessment and Plan (1) Weakness Current Visit: Yes Status: Acute This patient who is been complaining of generalized fatigue and weakness with numbness paresthesias of her hands and feet Admitted with the chest pain and generalized fatigue and weakness and difficulty with fine motor movements According to the patient she had been having weakness for a while but for the past several weeks it has gotten worse According to her started all of a sudden but other times she said that he is been having this problem for a while On examination I did not see any focal motor weakness except for generalized fatigue and weakness and decreased fine motor movements as well as significant paresthesias in her arms and feet She already had a MRI of the brain and CT angiogram both were negative The patient did acknowledges of significant heavy alcoholic use up to 10-15 bottles a week, last drink was about 3 weeks ago Patient's symptoms seems to be consistent with sensorimotor neuropathy perhaps alcohol-induced Other 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 Symptoms seem to be more subacute than acute as could be in GBS She is already on alcoholic withdrawal precautions I suggested he should continue Recommend continue on thiamine Low folic acid could be nutritional B12 level is elevated Suggest getting an MRI of the lumbar spine as well Should be on fall precaution may benefit from PT OT evaluation We will start her on gabapentin for symptomatic treatment for this neuropathic pain At bedtime workup is negative perhaps may do a spinal tap but the possibility of CIDP versus alcoholic neuropathy Would need short-term rehabilitation as high risk for the fall (2) Alcohol abuse Current Visit: Yes Status: Acute History of Present Illness HPI: Ms. Lock is a 53 year old female Ms. Lock is a 53 year old female with a past medical history significant for GERD, hypertension, presented to the emergency department because of the chest pain, there has been there for almost a year, worsened last night. Patient describes the pain in the onset last night, midsternal, nonradiating, no aggravating or relieving factors, feels like pressure. Patient has been having this pain for almost a year. Endorses nausea associated with the pain. Denies any vertigo. Denies history of [place], orthopnea, exertional dyspnea. Patient also complains of numbness and tingling sensation in her hands and feet for almost one year which has been progressively worsening. She feels that she has been losing her strength and her hands and feet are very weak. She also complains that sometimes she drops things because of the weakness. Patient is currently in the outside hospital because of electrolyte abnormalities, repleted and was discharged. Patient otherwise hemodynamically stable in the ED. Because of the concern of stroke, patient got a CT scan of the head and neck. CAT scan of the head was negative for any bleeding. CTA was negative for any high-grade stenosis, lesion or aneurysm. She is also complaining of some numbness and paresthesias and pain all over her body Past Med Surg Social Fam HX - Past Medical History Medical history: GERD, hypertension, TIA Additional medical history: AAA 4.8CM,, MULTIBLE FALLS Psychiatric history: anxiety, depression - Past Surgical History Surgical History: no surgical history - Social History Smoking Status: Former smoker Smokeless Tobacco Status: No Alcohol use: none Drug use: none - Family History Father Adopted: [employer]: [employer] Family Member Ethnicity: Non- Living Status: Age at : 48 Cause of : [place] Hx Family Cardiac Disorders: Yes Hx Family Respiratory Disorders: No Hx Family Cancer: No Hx Family GI Disorders: No Hx Family Genitourinary Disorders: No Hx Family Endocrine Disorder: No Hx Family Musculoskeletal Disorders: No Hx Family Neuromuscular Disorders: No Hx Family Neurologic Disorders: No Hx Family HEENT Disorders: No Hx Family Autoimmune Disorders: No Hx Family Reproductive Disorders: No Hx Family Psychosocial Disorders: No Hx Family Medical Disorders: No Medications and Allergies Aspirin [Lo-Dose Aspirin EC] 81 mg PO DAILY 07/17/19 [History] Escitalopram [Lexapro] 20 mg PO DAILY 07/17/19 [History] Furosemide [Lasix] 40 mg PO QAM 07/17/19 [History] LORazepam [Ativan] 0.5 mg PO BID PRN 07/17/19 [History] Lisinopril [Zestril] 40 mg PO DAILY 07/17/19 [History] Pantoprazole Sodium [Protonix] 40 mg PO BID 07/17/19 [History] Potassium Chloride [K-Tab ER] 20 meq PO DAILY 07/17/19 [History] Promethazine [Phenergan] 25 mg PO Q6HR PRN 07/17/19 [History] Allergy/AdvReac Type Severity Reaction Status Date / Time citalopram [From Celexa] Allergy Vomiting Verified 07/17/19 11:21 duloxetine [From Cymbalta] Allergy Vomiting Verified 07/17/19 11:21 All Systems: The remainder of the systems were reviewed and are negative Physical Examination - Vital Signs Vital Signs: Initial Vital Signs Temp Pulse Resp BP Pulse Ox 98.7 F 111 18 159/123 100 07/17/19 11:21 07/17/19 11:21 07/17/19 11:21 07/17/19 11:21 07/17/19 11:21 - Exam Exam: GENERAL: Comfortable in no acute distress HEENT: Normal LUNGS: CTA HEART: RRR, S1 S2 Audible, no murmur EXTREMITIES: No Pedal edema. DETAILED NEUROLOGICAL EXAMINATION: MENTAL STATUS: Oriented to person, place, date and situation. Memory: knows the President, Aware of recent events Recent Memory Intact, Attention span is normal Cranial Nerve Examination: CN - II: Visual Acuity, Field of Vision Normal, Fundus examination: No disk edema, Pupils- size shape reaction to light and accommodation: All normal. CN III, IV, : External ocular movements were intact, Pupils were reactive, Nodrooping of the eyelids CN V: Sensation over the face to light touch and pinprick all normal. Corneal reflexes not tested, jaw jerk normal. CN VII: No facial asymmetry, no flattening of nasolabial folds, no difficulty in closing the eyes, no loss of forehead wrinkles, no difficulty in eye-closure, frowning raising eyebrows. CNVIII: No significant hearing loss CN IX, X: Uvula centralized not deviated, Gag reflex: Not tested CN X1: Sternocleidomastoid, trapezius, normal or evidence of any weakness. CN X11: Some slurring of the speech noted at times Motor examination: No hypertrophy, tone was normal, power grade 0-5 Upper limbs Proximal- No difficulty in lifting the arms above the head. Distal- No weakness in distal muscles On formal testing 4/4 Lower limbs On formal testing 4/4 Coordination: Bszglp-ol-rhic slow with mild dysmetria , , Rapid alternating moment of wrist slow Sensory system: Superficial sensations- Touch normal. Pain- Pinprick, Temperature decrease in both lower extremities Deep sensation normal, Joint position sense decrease Cortical sensation, Tactile discrimination, localization and extinction all normal. Deep tendon reflexes. Symmetrical bilateral hypoactive, No evidence of Babinski. No sign of meningeal irritation Gait Examination: Deferred - Constitutional General appearance: comfortable Results - Laboratory Findings CBC and BMP: 07/20/19 03:25 07/20/19 03:25 Abnormal lab findings: Abnormal lab results RBC 2.58 M/mcL (3.82-4.97) L 07/18/19 08:46 Hgb 9.0 g/dL (11.5-15.4) L 07/18/19 08:46 Hct 28.2 % (35.3-44.9) L 07/18/19 08:46 MCV 109.3 fL (83.0-100.0) H 07/18/19 08:46 MCH 34.9 pg (28.0-33.3) H 07/18/19 08:46 RDW 16.9 % (11.5-14.5) H 07/18/19 08:46 MPV 9.3 fL (9.4-12.4) L 07/18/19 00:26 Potassium 3.2 mEq/L (3.5-5.1) L 07/17/19 11:41 Chloride 95 mEq/L (98-107) L 07/17/19 11:41 Carbon Dioxide 22 mEq/L (23-29) L 07/18/19 00:26 BUN 4 mg/dL (6-20) L 07/18/19 00:26 Creatinine 0.55 mg/dL (0.60-1.20) L 07/18/19 00:26 Calcium 8.1 mg/dL (8.6-10.3) L 07/18/19 00:26 Magnesium 1.4 mg/dL (1.6-2.6) L 07/17/19 11:41 Transferrin 107 mg/dL (203-362) L 07/18/19 00:26 Ferritin 271 ng/mL (10-120) H 07/18/19 00:26 Total Bilirubin 1.2 mg/dL (0.3-1.0) H 07/18/19 00:26 Direct Bilirubin 0.7 mg/dL (0.0-0.2) H 07/18/19 00:26 AST 54 Units/L (13-39) H 07/18/19 00:26 Alkaline Phosphatase 119 Units/L (34-104) H 07/18/19 00:26 Serum Total Protein 4.8 g/dL (6.4-8.9) L 07/18/19 00:26 Albumin 2.5 g/dL (3.5-5.7) L 07/18/19 00:26 Globulin 2.3 g/dL (2.4-3.5) L 07/18/19 00:26 Folate 2.5 ng/mL (3.0-16.0) L 07/18/19 00:26 Urine Clarity Cloudy (Clear) A 07/17/19 12:04 Ur Specific [place] < 1.005 (1.010-1.025) L 07/17/19 12:04 Ur Leukocyte Esterase Large (Negative) H 07/17/19 12:04 Urine Microscopic WBC TNTC per hpf (0-3) H 07/17/19 12:04 Ur Squamous Epith Cells Many per lpf (None-Few) H 07/17/19 12:04 Urine Bacteria Many per hpf (None-Few) H 07/17/19 12:04 Ur Culture Indicated? YES (NO) A 07/17/19 12:04 - Diagnostic Findings Additional findings: MRI of the brain is negative for any acute infarct or any other significant demyelination Consult Discharge Plan - Plan Referrals: Kaleigh Morrison, [facility] [Primary Care Provider] -
[2019-07-18] MEDS: Ringers Solution, Lactated 1,000 ML IVC SCH (14:19)
[2019-07-18] MEDS: cefTRIAXone 1,000 MG in Water for inj. (sterile) 10 ML IVPB SCH (16:03)
[2019-07-18] MEDS: Gabapentin 300 MG CAPSULE PO SCH (20:09)
[2019-07-18] MEDS ORDERED: Gabapentin 100 MG CAPSULE PO SCH (21:00)
[2019-07-19] MEDS: *HR* HYDROcodone/Acet 5/325 mg TABLET PO PRN (04:10)
[2019-07-19] MEDS: *HR* Promethazine 25 MG/ML VIAL IVP PRN ×2 (04:11→14:35)
[2019-07-19] MEDS: *HR* LORazepam 2 MG/ML VIAL IVP PRN ×3 (04:11→20:06)
[2019-07-19 05:15] LABS: Basophils # 0.1 K/mcL (0.0-0.2); Basophils % 1.4 %; Eosinophils # 0.2 K/mcL (0.0-0.6); Eosinophils % 3.9 %; Hematocrit 29.4 % (35.3-44.9); Hemoglobin 9.1 g/dL (11.5-15.4); Immature Granulocytes % 1.3 % (0-4); Lymphocytes % 42.6 %; Mean Corpuscular Hemoglobin 34.2 pg (28.0-33.3); Mean Corpuscular Volume 110.5 fL (83.0-100.0); Mean Platelet Volume 9.9 fL (9.4-12.4); Monocytes # 0.7 K/mcL (0.0-1.3); Monocytes % 11.6 %; Neutrophils # 2.4 K/mcL (1.6-8.9); Platelet Count 381 K/mcL (140-400); Red Blood Count 2.66 M/mcL (3.82-4.97); Red Cell Distribution Width 16.3 % (11.5-14.5); Segmented Neutrophils % 39.2 %; White Blood Count 6.2 K/mcL (4.3-11.1)
[2019-07-19 05:20] LABS: Lymphocytes # 2.6 K/mcL (0.6-4.6)
[2019-07-19 05:35] LABS: BUN/Creatinine Ratio 7 (6-26); Blood Urea Nitrogen 4 mg/dL (6-20); Calcium 8.2 mg/dL (8.6-10.3); Carbon Dioxide 25 mEq/L (23-29); Chloride 105 mEq/L (98-107); Glucose 75 mg/dL (70-105); Magnesium 1.8 mg/dL (1.6-2.6); Osmolality,Calculated 280 (280-300); Potassium 4.6 mEq/L (3.5-5.1); Sodium 137 mEq/L (136-145); eGFR For African Americans > 60 (> 60); eGFR For Non-African Americans > 60 (> 60)
[2019-07-19 05:40] LABS: Anisocytosis 1+ (Not Present); Macrocytosis Present (Not Present); Platelet Estimate Normal (Normal)
[2019-07-19] MEDS: *HR* Heparin 5,000 UNIT/ML VIAL SQ SCH ×2 (05:42→16:56)
[2019-07-19] MEDS: Ringers Solution, Lactated 1,000 ML IVC SCH ×2 (07:45→10:55)
[2019-07-19] MEDS: Folic Acid 1 MG TABLET PO SCH (09:19)
[2019-07-19] MEDS: Nicotine 21 MG PATCH.TD24 TD SCH (09:20)
[2019-07-19] MEDS: Gabapentin 300 MG CAPSULE PO SCH ×2 (09:20→20:06)
[2019-07-19] MEDS: Aspirin Enteric Coated 81 MG Tablet PO SCH (09:20)
[2019-07-19] MEDS: Lisinopril 20 MG TABLET PO SCH (09:20)
[2019-07-19] MEDS: Thiamine (B-1) 100 MG in D5% in Water 50 ML IVPB SCH (09:55)
--- NOTE | 2019-07-19 13:50 | Internal Med Progress Note ---
Hospitalist Progress Note - Encounter Date of Encounter: 07/19/19 Time of Encounter: 11:15 - Subjective Interval History: Patient seen at bedside. Seems drowsy today. She was given lorazepam because of the alcoholic withdrawal. Patient expressed that she wants Dilaudid or morphine for the pain. She was told that there is no objective data for her lisbet n in the type of pain she is experiencing will be most likely responding to gabapentin. Patient kept on insisting about morphine or Dilaudid. She mentioned that she had been taking 15-20 shots of hard alcohol every week. She does not think that alcoholism is a problem for her. She mentions that she is going to quit. Still experiencing epigastric pain. Denies chest pain, shortness of breath. No other overnight events. - Exam Vitals: Temp Pulse Resp BP Pulse Ox 97.5 F L 99 16 148/100 100 07/19/19 10:50 07/19/19 10:50 07/19/19 10:50 07/19/19 10:50 07/19/19 10:50 Exam: General: Drowsy but oriented, no physical distress, able to follow commands. HEENT: No thyromegaly, no lymphadenopathy, no discharge. Eyes: No discharge. Normal conjuctiva, no icterus Respiratory: Normal vesicular breathing, no added sounds, breathing equal in both sides. CVS: Normal heart sounds, no murmurs, regular rhthm, no edema Extremities: No peripheral edema, peripheral pulses intact. Lymph nodes: No lymphadenopathy Gastrointestinal: Soft, nontender abdomen, normal abdominal sounds. No distention noted. Genitourinary: No paravertebral tenderness. Skin: No rash, ulcers or wound. Neurological: Alert and oriented. No focal deficits. Cranial nerves II-XII intact. - Assessment and Plan (1) Weakness of distal arms and legs Current Visit: Yes Status: Acute Assessment and Plan: Etiology is unclear. 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 Patient folic acid levels are very low, she is also having macrocytic anemia. Patient mentions that she has been drinking for the past 1-2 years of good amount of alcohol, 15- 20 shots of hard liqour every week, but denies any drinking last 2-3 weeks. Most likely, patient has been drinking considering the progressive worsening of neuropathy and as the patient is showing signs of withdrawal. Folic acid levels are very low at 2.5. Vitamin D level is normal. MRI of the head was negative. Neurology on board. Appreciate recommendations. PT/OT recommending rehabilitation. Patient will need transfer to rehabilitation facility. per neuro recommendations, pt has been started on gabapentin 300 mg BID. Advised the patient to avoid alcohol. (2) Chest pain Current Visit: Yes Status: Acute Assessment and Plan: -EKG did not show any ischemic changes. Troponin levels were normal. Patient currently denies chest pain. Low probability for ACS. Echocardiography also did not show any wall motion abnormalities and a normal ejection fraction. Continue to monitor.. (3) UTI (urinary tract infection) Current Visit: Yes Status: Acute Assessment and Plan: UA positive. Urine cultures positive for E. Coli Continue the patient on ceftriaxone. (4) Abnormal EKG Current Visit: Yes Status: Acute Assessment and Plan: Had prolonged QTC which have been resolving. avoid QTC prolonging drugs. Optimize electrolytes. (5) Nausea Current Visit: Yes Status: Acute Assessment and Plan: Phenergan for the nausea. Avoid Zofran. (6) Smoking addiction Current Visit: Yes Status: Acute (7) Alcohol abuse Current Visit: Yes Status: Acute Assessment and Plan: CT scan scan consistent with fatty infiltration of the liver. AST elevated. elevated alkaline phosphatase and bilirubin. Advised the patient to quit drinking. -outpatient follow-up with a student officer. Because of the signs of withdrawl, patient has been started on CIWA protocol. (8) Anemia Current Visit: Yes Status: Acute Assessment and Plan: Likley due to folic acid deficieicny -Ordered folic acid repletion. (9) Hypokalemia Current Visit: Yes Status: Acute Assessment and Plan: Normal levels today -Repeat levels tomorrow (10) Hypomagnesemia Current Visit: Yes Status: Acute Assessment and Plan: -Mag of 1.8 tday -Contnue to monitor (11) AAA (abdominal aortic aneurysm) Current Visit: Yes Status: Acute Assessment and Plan: -Hx of AAA -Stabke -Advised to quit smoking -Outpt follow up recommended (12) Peripheral neuropathy Current Visit: Yes Status: Acute Assessment and Plan: -Seems to be secondary to alcohol -Advised to avoid alcohol -Ordered gabapentin -Narcotics d/cd -Consdiering the pt expressions, avoid narcotics in future as she has potential to abuse narcotics -Continue to monitor -Appreciate neurology recommendations. - Time Spent with Patient Total time spent is greater than 50% in coordination of care (as documented) at patient's floor/unit and/or counseling patient: Internal Medicine: Result - Labs CBC & Chem 7: 07/19/19 03:49 07/19/19 03:49 Labs: Short CBC 07/19/19 Range/Units 03:49 WBC 6.2 (4.3-11.1) K/mcL Hgb 9.1 L (11.5-15.4) g/dL Hct 29.4 L (35.3-44.9) % Plt Count 381 (140-400) K/mcL Neutrophils # 2.4 (1.6-8.9) K/mcL BMP 07/19/19 03:49 Sodium 137 Potassium 4.6 Chloride 105 Carbon Dioxide 25 BUN 4 L Creatinine 0.59 L Glucose 75 Calcium 8.2 L - ABG Interpretation ABG results: PT/INR, D-dimer PT 11.8 Seconds (9.4-12.1) 07/18/19 00:26 - Impressions Impressions Lumbar Spine MRI 07/18/19 12:50 IMPRESSION: No acute abnormality visualized. Mild degenerative changes at L4-5 and L5-S1. D/ / Garland Ybarra MD / Garland Ybarra MD Interpreting Provider: Garland Ybarra MD Consult Discharge Plan - Plan Referrals: Kaleigh Morrison, FINANCIAL SERVICES TECHNICIAN [Primary Care Provider] - (2) Chest pain Qualifiers: Chest pain type: unspecified Qualified Code(s): R07.9 - Chest pain, unspecified (3) UTI (urinary tract infection) Qualifiers: Urinary tract infection type: site unspecified Hematuria presence: without hematuria Qualified Code(s): N39.0 - Urinary tract infection, site not specified (8) Anemia Qualifiers: Anemia type: folate deficiency Folate deficiency anemia type: drug-induced Qualified Code(s): D52.1 - Drug-induced folate deficiency anemia (11) AAA (abdominal aortic aneurysm) Qualifiers: Presence of rupture: without rupture Qualified Code(s): I71.4 - Abdominal aortic aneurysm, without rupture (12) Peripheral neuropathy Qualifiers: 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
[2019-07-19] MEDS: cefTRIAXone 1,000 MG in Water for inj. (sterile) 10 ML IVPB SCH (16:55)
[2019-07-19] MEDS: Ibuprofen 400 MG TABLET PO PRN (16:56)
[2019-07-19] MEDS: *HR* LORazepam 0.5 MG TABLET PO PRN (18:04)
[2019-07-19] MEDS ORDERED: Melatonin 3 MG TABLET PO PRN (22:16)
[2019-07-20] MEDS: Ringers Solution, Lactated 1,000 ML IVC SCH ×2 (00:31→16:45)
[2019-07-20] MEDS: Ibuprofen 400 MG TABLET PO PRN ×2 (01:50→19:46)
[2019-07-20] MEDS: *HR* Promethazine 25 MG/ML VIAL IVP PRN ×3 (01:51→19:46)
[2019-07-20 03:47] LABS: Basophils # 0.1 K/mcL (0.0-0.2); Basophils % 1.4 %; Eosinophils # 0.2 K/mcL (0.0-0.6); Eosinophils % 2.9 %; Hematocrit 30.8 % (35.3-44.9); Hemoglobin 9.7 g/dL (11.5-15.4); Immature Granulocytes % 1.1 % (0-4); Lymphocytes # 1.8 K/mcL (0.6-4.6); Lymphocytes % 31.8 %; Mean Corpuscular HGB Conc 31.5 g/dL (31.6-35.5); Mean Corpuscular Volume 108.1 fL (83.0-100.0); Mean Platelet Volume 9.3 fL (9.4-12.4); Monocytes # 0.5 K/mcL (0.0-1.3); Neutrophils # 3.1 K/mcL (1.6-8.9); Platelet Count 366 K/mcL (140-400); Red Blood Count 2.85 M/mcL (3.82-4.97); Red Cell Distribution Width 15.9 % (11.5-14.5); Segmented Neutrophils % 54.8 %; White Blood Count 5.6 K/mcL (4.3-11.1)
[2019-07-20 03:48] LABS: VBG Ionized Calcium 1.19 mmol/L (1.15-1.35)
[2019-07-20 04:01] LABS: BUN/Creatinine Ratio 9 (6-26); Blood Urea Nitrogen 4 mg/dL (6-20); Calcium 8.3 mg/dL (8.6-10.3); Carbon Dioxide 26 mEq/L (23-29); Chloride 105 mEq/L (98-107); Glucose 75 mg/dL (70-105); Magnesium 1.5 mg/dL (1.6-2.6); Osmolality,Calculated 286 (280-300); Phosphorous 4.7 mg/dL (2.7-4.5); Sodium 140 mEq/L (136-145); eGFR For African Americans > 60 (> 60); eGFR For Non-African Americans > 60 (> 60)
[2019-07-20] MEDS: *HR* LORazepam 2 MG/ML VIAL IVP PRN (05:27)
[2019-07-20] MEDS: *HR* Heparin 5,000 UNIT/ML VIAL SQ SCH ×2 (05:28→16:44)
--- NOTE | 2019-07-20 06:22 | Electrocardiograph Report ---
[facility] Test Date: 2019-07-17 Pat Name: Paola Lock Department: EXAM2 Room: 3B63 Gender: F Artist Agent: : [id number] Requested By: Krystin Shanks Order Number: [id number] Reading MD: Denver Crespo Measurements Intervals [place] Rate: 118 P: 49 WY: 136 QRS: 40 QRSD: 86 T: 25 QT: 357 QTc: 501 Interpretive Statements Sinus tachycardia Abnormal R-wave progression, early transition Borderline prolonged QT interval Electronically Signed On 07-20-2019 6:21:27 EDT by Denver Crespo
--- NOTE | 2019-07-20 06:29 | Electrocardiograph Report ---
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
[2019-07-20] MEDS: Nicotine 21 MG PATCH.TD24 TD SCH (09:18)
[2019-07-20] MEDS: Aspirin Enteric Coated 81 MG Tablet PO SCH (09:20)
[2019-07-20] MEDS: Gabapentin 300 MG CAPSULE PO SCH ×2 (09:20→21:56)
[2019-07-20] MEDS: Folic Acid 1 MG TABLET PO SCH (09:20)
[2019-07-20] MEDS: Lisinopril 20 MG TABLET PO SCH (09:20)
[2019-07-20] MEDS: *HR* LORazepam 0.5 MG TABLET PO PRN ×2 (09:25→21:56)
--- NOTE | 2019-07-20 10:46 | Neurology Progress Note ---
<Eleazar Patrick - Last Filed: 07/20/19 11:28> Date of Encounter: 07/20/19 Time of Encounter: 10:39 Assessment and Plan (1) Weakness Current Visit: Yes Status: Acute Clinically, she is stable without further neurological complaints She continues to have c/o b/l hand and feet pain and parasthesias MRI brain and lumbar spine without acute pathology which would explain pain and parasthesias CTA negative as well Pain out of proportion to examination, no neurological deficits on examination She acknowledges alcohol abuse with recent cessation drinking 10-15 mini bottles weekly She is deficient on folic acid, and has hypomagnesemia; consider d/t ETOH abuse; possibly contributing to pain and parasthesias sx most likely d/t alcohol induced neuropathy. However, is sx do not improve she may need a spinal tap to rule out CIDP During my assessment this morning she is requesting an increase in the dose of gabapentin and is requesting opiates, specifically dilaudid or morpine. She mentions being dx previously with fibromyalgia and reports that she was never able to achieve adequate pain control We are not increasing gabapentin at this juncture; continue same dose; increase dose will cause increased sedation and increased risk for falls, additionally, she does not appear to be in distress on exam and communicate with this provider with her eye closed and seems somewhat drowsy. This does make me suspicious for seeking behavior. Continue with PT/OT in the outpatient setting as recommended Recommending c/w thaimaine replacement, and electrolyte replacement; being managed per IM team on CIWA protocol; risk for withdrawal, however no sx of withdrawal on my exam f/u with neurology outpatient at d/c; will do EMG in the clinic (2) Alcohol abuse Current Visit: Yes Status: Acute Subjective Principal diagnosis: weakness and neuropathy of b/l hands and feet Interval history: The chart was reviewed, the patient was seen and examined at the bedside today. She continues to report neuropathic pain in the b/l hands and feet as well as generalized weakness and fatigue. Today she is asking for an increase in the dose of gabapentin and asking to have opiate pain medication added to her medication list d/t continued discomfort. She denies any other concerns or questions. Objective - Constitutional Vitals: Temp Pulse Resp BP Pulse Ox 97.9 F 101 16 124/92 96 07/20/19 07:39 07/20/19 07:39 07/20/19 07:39 07/20/19 07:39 07/20/19 07:39 Exam: Examination: General Examination: *CONSTITUTIONAL: Alert and oriented x3, drowsy but opens eyes to verbal stimulus and able to maintain conversation with her eyes closed *GENERAL APPEARANCE OF PATIENT appears healthy and well groomed *EYES: pupils equal, round, reactive to light and accommodation, conjunct grant clear *CARDIOVASCULAR: no peripheral edema, distal temperature normal, dorsalis pedis pulses normal. Refer to vital signs * MUSCULOSKELETAL: *GAIT AND STATION: Deferred *ASSESSMENT OF MUSCLE STRENGTH IN THE UPPER AND LOWER EXTREMITIES bilateral deltoid, bicep, tricep, used car manager strength, hip flexors ,anterior tibialis, dorsoflexion of the foot 4/5 *MUSCLE TONE IN THE UPPER AND LOWER EXTREMITIES normal. No abnormal movements, fasciculations or atrophy identified. Neurological: *ORIENTATION to person, situation, time and place *LANGUAGE AND FUNCTION no significant aphasia or dysarthia was noted. *ATTENTION AND CONCENTRATION are normal *LANGUAGE FUNCTION no significant aphasia or dysarthia was noted. *FUND OF KNOWLEDGE aware of current events, past history, vocabulary *MENTAL attention span and concentration normal. *CN II optic fundi were normal, no papilledema noted. *CN III,IV, PERRLA extraocular eye movements were full, no nystagmus and no ptosis noted. *CN V shows normal sensation and jaw opens symmetrically. *CN VII shows normal facial movement symmetrically, upper and lower bi laterally. *CN VIII shows no significant hearing loss on exam *CN IX-Xpalate elevated symmetrically *CN XI normal strength in the sternocleidomastoid muscles, symmetrical shoulder shrugging. *CN XII tongue protruded in the midline, with normal strength and movement. *SENSORY EXAMINATION light touch intact *REFLEXES: deep tendon reflexes were 1/4 in b/l brachioradialis, bicep and tricep and absent patellar and plantar reflexes, no pathological reflexes were noted. *CEREBELLAR TESTING dysmetria with finger to nose, heel/knee/owusu *PAIN LEVEL 8/10 - b/l hands and feet Results - Laboratory Findings CBC and BMP: 07/20/19 03:25 07/20/19 03:25 Abnormal lab findings: Abnormal lab results RBC 2.85 M/mcL (3.82-4.97) L 07/20/19 03:25 Hgb 9.7 g/dL (11.5-15.4) L 07/20/19 03:25 Hct 30.8 % (35.3-44.9) L 07/20/19 03:25 MCV 108.1 fL (83.0-100.0) H 07/20/19 03:25 MCH 34.0 pg (28.0-33.3) H 07/20/19 03:25 MCHC 31.5 g/dL (31.6-35.5) L 07/20/19 03:25 RDW 15.9 % (11.5-14.5) H 07/20/19 03:25 MPV 9.3 fL (9.4-12.4) L 07/20/19 03:25 Anisocytosis 1+ (Not Present) A 07/19/19 03:49 Macrocytosis Present (Not Present) A 07/19/19 03:49 Potassium 3.2 mEq/L (3.5-5.1) L 07/17/19 11:41 Chloride 95 mEq/L (98-107) L 07/17/19 11:41 Carbon Dioxide 22 mEq/L (23-29) L 07/18/19 00:26 BUN 4 mg/dL (6-20) L 07/20/19 03:25 Creatinine 0.46 mg/dL (0.60-1.20) L 07/20/19 03:25 Calcium 8.3 mg/dL (8.6-10.3) L 07/20/19 03:25 Phosphorus 4.7 mg/dL (2.7-4.5) H 07/20/19 03:25 Magnesium 1.5 mg/dL (1.6-2.6) L 07/20/19 03:25 Transferrin 107 mg/dL (203-362) L 07/18/19 00:26 Ferritin 271 ng/mL (10-120) H 07/18/19 00:26 Total Bilirubin 1.2 mg/dL (0.3-1.0) H 07/18/19 00:26 Direct Bilirubin 0.7 mg/dL (0.0-0.2) H 07/18/19 00:26 AST 54 Units/L (13-39) H 07/18/19 00:26 Alkaline Phosphatase 119 Units/L (34-104) H 07/18/19 00:26 Serum Total Protein 4.8 g/dL (6.4-8.9) L 07/18/19 00:26 Albumin 2.5 g/dL (3.5-5.7) L 07/18/19 00:26 Globulin 2.3 g/dL (2.4-3.5) L 07/18/19 00:26 Folate 2.5 ng/mL (3.0-16.0) L 07/18/19 00:26 Urine Clarity Cloudy (Clear) A 07/17/19 12:04 Ur Specific [place] < 1.005 (1.010-1.025) L 07/17/19 12:04 Ur Leukocyte Esterase Large (Negative) H 07/17/19 12:04 Urine Microscopic WBC TNTC per hpf (0-3) H 07/17/19 12:04 Ur Squamous Epith Cells Many per lpf (None-Few) H 07/17/19 12:04 Urine Bacteria Many per hpf (None-Few) H 07/17/19 12:04 Ur Culture Indicated? YES (NO) A 07/17/19 12:04 Consult Discharge Plan - Plan Referrals: Kaleigh Morrison CNP [Primary Care Provider] - <Carmen Carter I - Last Filed: 07/20/19 14:20> Date of Encounter: 07/20/19 Assessment and Plan (1) Weakness Current Visit: Yes Status: Acute I have personally performed a face to face diagnostic evaluation, including HPI, EXAM, which is included in the Assesment and plan, which was discussed with Eleazar Patrick CNP, I agree with the above outlined documentation. Patient to follow-up in neurology as an outpatient in 2-3 weeks for EMG nerve conduction studies in the meantime she would benefit from acute short-term rehabilitation particularly for gait and balance treatment Carmen Carter MD. NeurologyI (2) Alcohol abuse Current Visit: Yes Status: Acute Objective - Constitutional Vitals: Temp Pulse Resp BP Pulse Ox 98.2 F 78 16 124/59 97 07/20/19 10:53 07/20/19 10:53 07/20/19 10:53 07/20/19 10:53 07/20/19 10:53 Results - Laboratory Findings CBC and BMP: 07/20/19 03:25 07/20/19 03:25 Abnormal lab findings: Abnormal lab results RBC 2.85 M/mcL (3.82-4.97) L 07/20/19 03:25 Hgb 9.7 g/dL (11.5-15.4) L 07/20/19 03:25 Hct 30.8 % (35.3-44.9) L 07/20/19 03:25 MCV 108.1 fL (83.0-100.0) H 07/20/19 03:25 MCH 34.0 pg (28.0-33.3) H 07/20/19 03:25 MCHC 31.5 g/dL (31.6-35.5) L 07/20/19 03:25 RDW 15.9 % (11.5-14.5) H 07/20/19 03:25 MPV 9.3 fL (9.4-12.4) L 07/20/19 03:25 Anisocytosis 1+ (Not Present) A 07/19/19 03:49 Macrocytosis Present (Not Present) A 07/19/19 03:49 Potassium 3.2 mEq/L (3.5-5.1) L 07/17/19 11:41 Chloride 95 mEq/L (98-107) L 07/17/19 11:41 Carbon Dioxide 22 mEq/L (23-29) L 07/18/19 00:26 BUN 4 mg/dL (6-20) L 07/20/19 03:25 Creatinine 0.46 mg/dL (0.60-1.20) L 07/20/19 03:25 Calcium 8.3 mg/dL (8.6-10.3) L 07/20/19 03:25 Phosphorus 4.7 mg/dL (2.7-4.5) H 07/20/19 03:25 Magnesium 1.5 mg/dL (1.6-2.6) L 07/20/19 03:25 Transferrin 107 mg/dL (203-362) L 07/18/19 00:26 Ferritin 271 ng/mL (10-120) H 07/18/19 00:26 Total Bilirubin 1.2 mg/dL (0.3-1.0) H 07/18/19 00:26 Direct Bilirubin 0.7 mg/dL (0.0-0.2) H 07/18/19 00:26 AST 54 Units/L (13-39) H 07/18/19 00:26 Alkaline Phosphatase 119 Units/L (34-104) H 07/18/19 00:26 Serum Total Protein 4.8 g/dL (6.4-8.9) L 07/18/19 00:26 Albumin 2.5 g/dL (3.5-5.7) L 07/18/19 00:26 Globulin 2.3 g/dL (2.4-3.5) L 07/18/19 00:26 Folate 2.5 ng/mL (3.0-16.0) L 07/18/19 00:26 Urine Clarity Cloudy (Clear) A 07/17/19 12:04 Ur Specific [place] < 1.005 (1.010-1.025) L 07/17/19 12:04 Ur Leukocyte Esterase Large (Negative) H 07/17/19 12:04 Urine Microscopic WBC TNTC per hpf (0-3) H 07/17/19 12:04 Ur Squamous Epith Cells Many per lpf (None-Few) H 07/17/19 12:04 Urine Bacteria Many per hpf (None-Few) H 07/17/19 12:04 Ur Culture Indicated? YES (NO) A 07/17/19 12:04
[2019-07-20] MEDS: Thiamine (B-1) 100 MG in D5% in Water 50 ML IVPB SCH (11:02)
--- NOTE | 2019-07-20 14:01 | Internal Med Progress Note ---
Hospitalist Progress Note - Encounter Date of Encounter: 07/20/19 Time of Encounter: 10:00 - Subjective Interval History: Patient was seen at bedside. Still complaining of epigastric pain. She thinks that her symptoms then resolved with the Dilaudid. Denies fever, chills, rigors. No other overnight events. Participating with physical therapy on oli y basis. - Exam Vitals: Temp Pulse Resp BP Pulse Ox 98.2 F 78 16 124/59 97 07/20/19 10:53 07/20/19 10:53 07/20/19 10:53 07/20/19 10:53 07/20/19 10:53 Exam: General: Drowsy but oriented, no physical distress, able to follow commands. Respiratory: Normal vesicular breathing, no added sounds, breathing equal in both sides. CVS: Normal heart sounds, no murmurs, regular rhthm, no edema Extremities: No peripheral edema, peripheral pulses intact. Lymph nodes: No lymphadenopathy Gastrointestinal: Soft, nontender abdomen, normal abdominal sounds. No distention noted. Genitourinary: No paravertebral tenderness. Skin: No rash, ulcers or wound. Neurological: Alert and oriented. No focal deficits. Cranial nerves II-XII intact. - Assessment and Plan (1) Weakness of distal arms and legs Current Visit: Yes Status: Acute Assessment and Plan: Etiology is unclear. 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 Patient folic acid levels are very low, she is also having macrocytic anemia. Patient mentions that she has been drinking for the past 1-2 years of good amount of alcohol, 15- 20 shots of hard liqour every week, but denies any drinking last 2-3 weeks. Most likely, patient has been drinking considering the progressive worsening of neuropathy and as the patient is showing signs of withdrawal. Folic acid levels are very low at 2.5. Vitamin D level is normal. MRI of the head was negative. Neurology on board. Appreciate recommendations. PT/OT recommending rehabilitation. Patient will need transfer to rehabilitation facility. per neuro recommendations, pt has been started on gabapentin 300 mg BID. Advised the patient to avoid alcohol. (2) Chest pain Current Visit: Yes Status: Acute Assessment and Plan: -EKG did not show any ischemic changes. Troponin levels were normal. Patient currently denies chest pain. Low probability for ACS. Echocardiography also did not show any wall motion abnormalities and a normal ejection fraction. Continue to monitor.. (3) UTI (urinary tract infection) Current Visit: Yes Status: Acute Assessment and Plan: UA positive. Urine cultures positive for E. Coli Continue the patient on ceftriaxone. (4) Nausea Current Visit: Yes Status: Acute (5) Smoking addiction Current Visit: Yes Status: Acute Assessment and Plan: According to the patient, she quit smoking yesterday. Smokes 3 packs per day. Nicotine patches ordered Counseled about the adverse effect of smoking. (6) Alcohol abuse Current Visit: Yes Status: Acute Assessment and Plan: CT scan scan consistent with fatty infiltration of the liver. AST elevated. elevated alkaline phosphatase and bilirubin. Advised the patient to quit drinking. -outpatient follow-up with a editor sound. Because of the signs of withdrawl, patient has been started on CIWA protocol. (7) Anemia Current Visit: Yes Status: Acute Assessment and Plan: Likley due to folic acid deficieicny -Ordered folic acid repletion. (8) Hypokalemia Current Visit: Yes Status: Acute Assessment and Plan: Normal levels today -Repeat levels tomorrow (9) Hypomagnesemia Current Visit: Yes Status: Acute Assessment and Plan: -Mag of 1.5 tday -Replete. Repeat levels tomorrow. (10) AAA (abdominal aortic aneurysm) Current Visit: Yes Status: Acute Assessment and Plan: -Hx of AAA -Stabke -Advised to quit smoking -Outpt follow up recommended (11) Peripheral neuropathy Current Visit: Yes Status: Acute Assessment and Plan: -Seems to be secondary to alcohol -Advised to avoid alcohol -Ordered gabapentin -Narcotics d/cd -Consdiering the pt expressions, avoid narcotics in future as she has potential to abuse narcotics -Needs Physical therapy. Awaiting placement to the rehabilitation.. - Time Spent with Patient Total time spent is greater than 50% in coordination of care (as documented) at patient's floor/unit and/or counseling patient: Internal Medicine: Result - Labs CBC & Chem 7: 07/20/19 03:25 07/20/19 03:25 Labs: Short CBC 07/20/19 Range/Units 03:25 WBC 5.6 (4.3-11.1) K/mcL Hgb 9.7 L (11.5-15.4) g/dL Hct 30.8 L (35.3-44.9) % Plt Count 366 (140-400) K/mcL Neutrophils # 3.1 (1.6-8.9) K/mcL BMP 07/20/19 03:25 Sodium 140 Potassium 4.0 Chloride 105 Carbon Dioxide 26 BUN 4 L Creatinine 0.46 L Glucose 75 Calcium 8.3 L - ABG Interpretation ABG results: PT/INR, D-dimer PT 11.8 Seconds (9.4-12.1) 07/18/19 00:26 Consult Discharge Plan - Plan Referrals: Kaleigh Morrison, [facility] [Primary Care Provider] - (2) Chest pain Qualifiers: Chest pain type: unspecified Qualified Code(s): R07.9 - Chest pain, unspecified (3) UTI (urinary tract infection) Qualifiers: Urinary tract infection type: site unspecified Hematuria presence: without hematuria Qualified Code(s): N39.0 - Urinary tract infection, site not specified (7) Anemia Qualifiers: Anemia type: folate deficiency Folate deficiency anemia type: drug-induced Qualified Code(s): D52.1 - Drug-induced folate deficiency anemia (10) AAA (abdominal aortic aneurysm) Qualifiers: Presence of rupture: without rupture Qualified Code(s): I71.4 - Abdominal aortic aneurysm, without rupture (11) Peripheral neuropathy Qualifiers: 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
[2019-07-20] MEDS: cefTRIAXone 1,000 MG in Water for inj. (sterile) 10 ML IVPB SCH (16:43)
[2019-07-20] MEDS ORDERED: Acetaminophen IV 500 MG/50 ML INFUS..BTL IVPB ONE (23:18)
[2019-07-21 05:23] LABS: BUN/Creatinine Ratio 10 (6-26); Blood Urea Nitrogen 4 mg/dL (6-20); Carbon Dioxide 21 mEq/L (23-29); Chloride 108 mEq/L (98-107); Glucose 72 mg/dL (70-105); Magnesium 1.7 mg/dL (1.6-2.6); Osmolality,Calculated 281 (280-300); Potassium 4.2 mEq/L (3.5-5.1); Sodium 138 mEq/L (136-145); eGFR For African Americans > 60 (> 60); eGFR For Non-African Americans > 60 (> 60)
[2019-07-21 05:43] LABS: Basophils # 0.1 K/mcL (0.0-0.2); Basophils % 1.1 %; Eosinophils # 0.2 K/mcL (0.0-0.6); Eosinophils % 2.9 %; Hematocrit 32.9 % (35.3-44.9); Hemoglobin 10.6 g/dL (11.5-15.4); Immature Granulocytes % 0.8 % (0-4); Lymphocytes # 2.4 K/mcL (0.6-4.6); Lymphocytes % 38.5 %; Mean Corpuscular HGB Conc 32.2 g/dL (31.6-35.5); Mean Corpuscular Hemoglobin 34.5 pg (28.0-33.3); Mean Corpuscular Volume 107.2 fL (83.0-100.0); Mean Platelet Volume 9.4 fL (9.4-12.4); Monocytes # 0.5 K/mcL (0.0-1.3); Monocytes % 7.5 %; Neutrophils # 3.1 K/mcL (1.6-8.9); Platelet Count 285 K/mcL (140-400); Red Blood Count 3.07 M/mcL (3.82-4.97); Red Cell Distribution Width 15.9 % (11.5-14.5); Segmented Neutrophils % 49.2 %; White Blood Count 6.3 K/mcL (4.3-11.1)
[2019-07-21] MEDS: *HR* Heparin 5,000 UNIT/ML VIAL SQ SCH ×2 (06:51→17:00)
[2019-07-21] MEDS: *HR* Promethazine 25 MG/ML VIAL IVP PRN ×2 (08:42→20:15)
[2019-07-21] MEDS: Ringers Solution, Lactated 1,000 ML IVC SCH ×2 (08:42→18:33)
[2019-07-21] MEDS: Furosemide 40 MG TABLET PO SCH (08:43)
[2019-07-21] MEDS: Folic Acid 1 MG TABLET PO SCH (08:43)
[2019-07-21] MEDS: Gabapentin 300 MG CAPSULE PO SCH ×2 (08:43→20:14)
[2019-07-21] MEDS: Lisinopril 20 MG TABLET PO SCH (08:43)
[2019-07-21] MEDS: Ibuprofen 400 MG TABLET PO PRN (08:43)
[2019-07-21] MEDS: Aspirin Enteric Coated 81 MG Tablet PO SCH (08:44)
[2019-07-21] MEDS: Nicotine 21 MG PATCH.TD24 TD SCH (08:44)
--- NOTE | 2019-07-21 09:20 | Neurology Progress Note ---
<Eleazar Patrick - Last Filed: 07/21/19 09:17> Date of Encounter: 07/21/19 Time of Encounter: 09:18 Assessment and Plan (1) Weakness Current Visit: Yes Status: Acute The patient was seen in follow-up for neuropathic pain of the bilateral hands and feet and generalized weakness The neurological w/u included negative MRI brain and Lumbar spine She has a history of alcohol abuse (drinking 10-15 drinker per week) and is reporting stomach ulcers and poor nutrition intake as a result of both She was found to have nutritional deficiencies including low serum total protein, low albumin, and folate As such the neuropathic pain and weakness is likely multifactorial with nutritional deficiencies and alcohol abuse induced neuropathy Pain and weakness persists today; plan is for discharge to inpatient swing bed for rehabilitation We are not recommending any further workup while inpatient at this time She will need follow-up with Dr. Carter in 2-3 weeks for EMG nerve conduction studies Continue with gabapentin at his current dose 300 mg twice a day Otherwise, continue medical and supportive care Neurology will sign off. (2) Alcohol abuse Current Visit: Yes Status: Acute Subjective Principal diagnosis: weakness and neuropathy of b/l hands and feet Interval history: The chart was reviewed, the patient was seen and examined at the bedside. No acute change in condition overnight. She continues to endorse neuropathic pain in the b/l hands and feet as well as generalized weakness. Her questions this morning pertain to when she is able to discharge and discharging to a swing-bed for rehabilitation. I discussed plans for f/u with Dr. Carter in 2-3 weeks for EMG. Objective - Constitutional Vitals: Temp Pulse Resp BP Pulse Ox 97.7 F 107 16 184/105 93 07/21/19 07:10 07/21/19 07:10 07/21/19 07:10 07/21/19 07:10 07/21/19 07:10 Exam: Examination: General Examination: *CONSTITUTIONAL: Alert and oriented x3, , calm and cooperative in no acute distress *GENERAL APPEARANCE OF PATIENT appears healthy and well groomed *EYES: pupils equal, round, reactive to light and accommodation, conjunctiva clear *CARDIOVASCULAR: no peripheral edema, distal temperature normal, dorsalis pedis pulses normal. Refer to vital signs * MUSCULOSKELETAL: *GAIT AND STATION: Deferred *ASSESSMENT OF MUSCLE STRENGTH IN THE UPPER AND LOWER EXTREMITIES bilateral deltoid, bicep, tricep, diving judge strength, hip flexors ,anterior tibialis, dorsoflexion of the foot 4/5 *MUSCLE TONE IN THE UPPER AND LOWER EXTREMITIES normal. No abnormal movements, fasciculations or atrophy identified. Neurological: *ORIENTATION to person, situation, time and place *LANGUAGE AND FUNCTION no significant aphasia or dysarthia was noted. *ATTENTION AND CONCENTRATION are normal *LANGUAGE FUNCTION no significant aphasia or dysarthia was noted. *FUND OF KNOWLEDGE aware of current events, past history, vocabulary *MENTAL attention span and concentration normal. *CN II optic fundi were normal, no papilledema noted. *CN III,IV, PERRLA extraocular eye movements were full, no nystagmus and no ptosis noted. *CN V shows normal sensation and jaw opens symmetrically. *CN VII shows normal facial movement symmetrically, upper and lower bilaterally. *CN VIII shows no significant hearing loss on exam *CN IX-Xpalate elevated symmetrically *CN XI normal strength in the sternocleidomastoid muscles, symmetrical shoulder shrugging. *CN XII tongue protruded in the midline, with normal strength and movement. *SENSORY EXAMINATION light touch intact *REFLEXES: deep tendon reflexes were 1/4 in b/l brachioradialis, bicep and tricep and absent patellar and plantar reflexes, no pathological reflexes were noted. *CEREBELLAR TESTING dysmetria with finger to nose persists today *PAIN LEVEL 4/10 - b/l hands and feet Results - Laboratory Findings CBC and BMP: 07/21/19 05:31 07/21/19 04:46 Abnormal lab findings: Abnormal lab results RBC 3.07 M/mcL (3.82-4.97) L 07/21/19 05:31 Hgb 10.6 g/dL (11.5-15.4) L 07/21/19 05:31 Hct 32.9 % (35.3-44.9) L 07/21/19 05:31 MCV 107.2 fL (83.0-100.0) H 07/21/19 05:31 MCH 34.5 pg (28.0-33.3) H 07/21/19 05:31 MCHC 31.5 g/dL (31.6-35.5) L 07/20/19 03:25 RDW 15.9 % (11.5-14.5) H 07/21/19 05:31 MPV 9.3 fL (9.4-12.4) L 07/20/19 03:25 Anisocytosis 1+ (Not Present) A 07/19/19 03:49 Macrocytosis Present (Not Present) A 07/19/19 03:49 Potassium 3.2 mEq/L (3.5-5.1) L 07/17/19 11:41 Chloride 108 mEq/L (98-107) H 07/21/19 04:46 Carbon Dioxide 21 mEq/L (23-29) L 07/21/19 04:46 BUN 4 mg/dL (6-20) L 07/21/19 04:46 Creatinine 0.39 mg/dL (0.60-1.20) L 07/21/19 04:46 Calcium 8.0 mg/dL (8.6-10.3) L 07/21/19 04:46 Phosphorus 4.7 mg/dL (2.7-4.5) H 07/20/19 03:25 Magnesium 1.5 mg/dL (1.6-2.6) L 07/20/19 03:25 Transferrin 107 mg/dL (203-362) L 07/18/19 00:26 Ferritin 271 ng/mL (10-120) H 07/18/19 00:26 Total Bilirubin 1.2 mg/dL (0.3-1.0) H 07/18/19 00:26 Direct Bilirubin 0.7 mg/dL (0.0-0.2) H 07/18/19 00:26 AST 54 Units/L (13-39) H 07/18/19 00:26 Alkaline Phosphatase 119 Units/L (34-104) H 07/18/19 00:26 Serum Total Protein 4.8 g/dL (6.4-8.9) L 07/18/19 00:26 Albumin 2.5 g/dL (3.5-5.7) L 07/18/19 00:26 Globulin 2.3 g/dL (2.4-3.5) L 07/18/19 00:26 Folate 2.5 ng/mL (3.0-16.0) L 07/18/19 00:26 Urine Clarity Cloudy (Clear) A 07/17/19 12:04 Ur Specific [place] < 1.005 (1.010-1.025) L 07/17/19 12:04 Ur Leukocyte Esterase Large (Negative) H 07/17/19 12:04 Urine Microscopic WBC TNTC per hpf (0-3) H 07/17/19 12:04 Ur Squamous Epith Cells Many per lpf (None-Few) H 07/17/19 12:04 Urine Bacteria Many per hpf (None-Few) H 07/17/19 12:04 Ur Culture Indicated? YES (NO) A 07/17/19 12:04 Consult Discharge Plan - Plan Referrals: Kaleigh Morrison CNP [Primary Care Provider] - 07/24/19 12:00 pm <Carmen Carter I - Last Filed: 07/21/19 12:00> Date of Encounter: 07/21/19 Assessment and Plan (1) Weakness Current Visit: Yes Status: Acute I have personally performed a face to face diagnostic evaluation, including HPI, EXAM, which is included in the Assesment and plan, which was discussed with Eleazar Patrick CNP, I agree with the above outlined documentation. Patient would benefit from short-term rehabilitation for gait and balance training exercises will see as a follow-up in neurology clinic for possible EMG nerve conduction studies Carmen Carter MD. NeurologyI (2) Alcohol abuse Current Visit: Yes Status: Acute Objective - Constitutional Vitals: Temp Pulse Resp BP Pulse Ox 97.8 F 97 16 169/110 97 07/21/19 11:11 07/21/19 11:11 07/21/19 11:11 07/21/19 11:11 07/21/19 11:11 Results - Laboratory Findings CBC and BMP: 07/21/19 05:31 07/21/19 04:46 Abnormal lab findings: Abnormal lab results RBC 3.07 M/mcL (3.82-4.97) L 07/21/19 05:31 Hgb 10.6 g/dL (11.5-15.4) L 07/21/19 05:31 Hct 32.9 % (35.3-44.9) L 07/21/19 05:31 MCV 107.2 fL (83.0-100.0) H 07/21/19 05:31 MCH 34.5 pg (28.0-33.3) H 07/21/19 05:31 MCHC 31.5 g/dL (31.6-35.5) L 07/20/19 03:25 RDW 15.9 % (11.5-14.5) H 07/21/19 05:31 MPV 9.3 fL (9.4-12.4) L 07/20/19 03:25 Anisocytosis 1+ (Not Present) A 07/19/19 03:49 Macrocytosis Present (Not Present) A 07/19/19 03:49 Potassium 3.2 mEq/L (3.5-5.1) L 07/17/19 11:41 Chloride 108 mEq/L (98-107) H 07/21/19 04:46 Carbon Dioxide 21 mEq/L (23-29) L 07/21/19 04:46 BUN 4 mg/dL (6-20) L 07/21/19 04:46 Creatinine 0.39 mg/dL (0.60-1.20) L 07/21/19 04:46 Calcium 8.0 mg/dL (8.6-10.3) L 07/21/19 04:46 Phosphorus 4.7 mg/dL (2.7-4.5) H 07/20/19 03:25 Magnesium 1.5 mg/dL (1.6-2.6) L 07/20/19 03:25 Transferrin 107 mg/dL (203-362) L 07/18/19 00:26 Ferritin 271 ng/mL (10-120) H 07/18/19 00:26 Total Bilirubin 1.2 mg/dL (0.3-1.0) H 07/18/19 00:26 Direct Bilirubin 0.7 mg/dL (0.0-0.2) H 07/18/19 00:26 AST 54 Units/L (13-39) H 07/18/19 00:26 Alkaline Phosphatase 119 Units/L (34-104) H 07/18/19 00:26 Serum Total Protein 4.8 g/dL (6.4-8.9) L 07/18/19 00:26 Albumin 2.5 g/dL (3.5-5.7) L 07/18/19 00:26 Globulin 2.3 g/dL (2.4-3.5) L 07/18/19 00:26 Folate 2.5 ng/mL (3.0-16.0) L 07/18/19 00:26 Urine Clarity Cloudy (Clear) A 07/17/19 12:04 Ur Specific [place] < 1.005 (1.010-1.025) L 07/17/19 12:04 Ur Leukocyte Esterase Large (Negative) H 07/17/19 12:04 Urine Microscopic WBC TNTC per hpf (0-3) H 07/17/19 12:04 Ur Squamous Epith Cells Many per lpf (None-Few) H 07/17/19 12:04 Urine Bacteria Many per hpf (None-Few) H 07/17/19 12:04 Ur Culture Indicated? YES (NO) A 07/17/19 12:04
[2019-07-21] MEDS: *HR* LORazepam 0.5 MG TABLET PO PRN (10:26)
[2019-07-21] MEDS: Thiamine (B-1) 100 MG in D5% in Water 50 ML IVPB SCH (10:26)
[2019-07-21] MEDS: cloNIDine HCl 0.1 MG TABLET PO ONE ×2 (11:39→12:16)
[2019-07-21] MEDS ORDERED: cloNIDine HCl 0.1 MG TABLET PO ONE (12:15)
[2019-07-21] MEDS ORDERED: cloNIDine HCl 0.1 MG TABLET PO PRN (14:48)
--- NOTE | 2019-07-21 14:56 | Internal Med Progress Note ---
Hospitalist Progress Note - Encounter Date of Encounter: 07/21/19 Time of Encounter: 11:00 - Subjective Interval History: Seen at bedside. Patient had IV acetaminophen last night which helped her relieving her pain. Denies chest pain or shortness of breath at this point. Endorses increased in frequency and urinary urgency. No other acute overnight events. - Exam Vitals: Temp Pulse Resp BP Pulse Ox 97.8 F 97 16 169/110 97 07/21/19 11:11 07/21/19 11:11 07/21/19 11:11 07/21/19 11:11 07/21/19 11:11 Exam: General:Alertt oriented, no physical distress, able to follow commands. Respiratory: Normal vesicular breathing, no added sounds, breathing equal in both sides. CVS: Normal heart sounds, no murmurs, regular rhthm, no edema Extremities: No peripheral edema, peripheral pulses intact. Lymph nodes: No lymphadenopathy Gastrointestinal: Soft, nontender abdomen, normal abdominal sounds. No distention noted. Genitourinary: No paravertebral tenderness. Skin: No rash, ulcers or wound. Neurological: Alert and oriented. No focal deficits. Cranial nerves II-XII intact. - Assessment and Plan (1) Weakness of distal arms and legs Current Visit: Yes Status: Acute Assessment and Plan: Etiology is unclear. 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 Patient folic acid levels are very low, she is also having macrocytic anemia. Patient mentions that she has been drinking for the past 1-2 years of good amount of alcohol, 15- 20 shots of hard liqour every week, but denies any drinking last 2-3 weeks. Most likely, patient has been drinking considering the progressive worsening of neuropathy and as the patient is showing signs of withdrawal. Folic acid levels are very low at 2.5. Vitamin D level is normal. MRI of the head was negative. PT/OT recommending rehabilitation. Patient will need transfer to rehabilitation facility. per neuro recommendations, pt has been started on gabapentin 300 mg BID. Advised the patient to avoid alcohol. (2) Chest pain Current Visit: Yes Status: Acute Assessment and Plan: -EKG did not show any ischemic changes. Troponin levels were normal. Patient currently denies chest pain. Low probability for ACS. Echocardiography also did not show any wall motion abnormalities and a normal ejection fraction. -Had relief n the pain with IV acetaminopehn, will continue Continue to monitor.. (3) UTI (urinary tract infection) Current Visit: Yes Status: Acute Assessment and Plan: UA positive. -Still ahving increased urinary frequcy Urine cultures positive for E. Coli Continue the patient on ceftriaxone. (4) Nausea Current Visit: Yes Status: Acute Assessment and Plan: Phenergan for the nausea. Avoid Zofran. (5) Smoking addiction Current Visit: Yes Status: Acute Assessment and Plan: According to the patient, she quit smoking yesterday. Smokes 3 packs per day. Nicotine patches ordered Counseled about the adverse effect of smoking. (6) Alcohol abuse Current Visit: Yes Status: Acute Assessment and Plan: CT scan scan consistent with fatty infiltration of the liver. AST elevated. elevated alkaline phosphatase and bilirubin. Advised the patient to quit drinking. -outpatient follow-up with a relay man. Because of the signs of withdrawl, patient has been started on CIWA protocol. Scoring very low though (7) Anemia Current Visit: Yes Status: Acute Assessment and Plan: Likley due to folic acid deficieicny -Ordered folic acid repletion. (8) Hypokalemia Current Visit: Yes Status: Acute Assessment and Plan: Normal levels today (9) Hypomagnesemia Current Visit: Yes Status: Acute Assessment and Plan: -Mag of 1.7 tday (10) AAA (abdominal aortic aneurysm) Current Visit: Yes Status: Acute Assessment and Plan: -Hx of AAA -Stabke -Advised to quit smoking -Outpt follow up recommended (11) Peripheral neuropathy Current Visit: Yes Status: Acute Assessment and Plan: -Seems to be secondary to alcohol -Advised to avoid alcohol -Ordered gabapentin -Narcotics d/cd -Consdiering the pt expressions, avoid narcotics in future as she has potential to abuse narcotics -Needs Physical therapy. Awaiting placement to the rehabilitation.. (12) Hypertension Current Visit: Yes Status: Acute Assessment and Plan: Patient with history of hypertension, currently lisinopril 40 mg daily. Patient's blood pressure has been elevated even with the antihypertensive medication. She was given 0.1 mg of clonidine in the morning because her pressure was above 180. Clonidine helped with the patient blood pressure. Continue clonidine as needed. Patient may need additional antihypertensive if the pt BP remains to be high as outpatient - Time Spent with Patient Total time spent is greater than 50% in coordination of care (as documented) at patient's floor/unit and/or counseling patient: Internal Medicine: Result - Labs CBC & Chem 7: 07/21/19 05:31 07/21/19 04:46 Labs: Short CBC 07/21/19 Range/Units 05:31 WBC 6.3 (4.3-11.1) K/mcL Hgb 10.6 L (11.5-15.4) g/dL Hct 32.9 L (35.3-44.9) % Plt Count 285 (140-400) K/mcL Neutrophils # 3.1 (1.6-8.9) K/mcL BMP 07/21/19 04:46 Sodium 138 Potassium 4.2 Chloride 108 H Carbon Dioxide 21 L BUN 4 L Creatinine 0.39 L Glucose 72 Calcium 8.0 L - ABG Interpretation ABG results: PT/INR, D-dimer PT 11.8 Seconds (9.4-12.1) 07/18/19 00:26 Consult Discharge Plan - Plan Referrals: Kaleigh Morrison CNP [Primary Care Provider] - 07/24/19 12:00 pm (2) Chest pain Qualifiers: Chest pain type: unspecified Qualified Code(s): R07.9 - Chest pain, unspecifi ed (3) UTI (urinary tract infection) Qualifiers: Urinary tract infection type: site unspecified Hematuria presence: without hematuria Qualified Code(s): N39.0 - Urinary tract infection, site not specified (7) Anemia Qualifiers: Anemia type: folate deficiency Folate deficiency anemia type: drug-induced Qualified Code(s): D52.1 - Drug-induced folate deficiency anemia (10) AAA (abdominal aortic aneurysm) Qualifiers: Presence of rupture: without rupture Qualified Code(s): I71.4 - Abdominal aortic aneurysm, without rupture (11) Peripheral neuropathy Qualifiers: 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
[2019-07-21] MEDS: Acetaminophen IV 500 MG/50 ML INFUS..BTL IVPB SCH ×2 (16:59→22:59)
[2019-07-21] MEDS: cefTRIAXone 1,000 MG in Water for inj. (sterile) 10 ML IVPB SCH (16:59)
[2019-07-21] MEDS: *HR* LORazepam 2 MG/ML VIAL IVP PRN (17:44)
[2019-07-22] MEDS: *HR* Heparin 5,000 UNIT/ML VIAL SQ SCH (06:25)
[2019-07-22] MEDS: *HR* Promethazine 25 MG/ML VIAL IVP PRN (07:02)
[2019-07-22] MEDS: Acetaminophen IV 500 MG/50 ML INFUS..BTL IVPB SCH ×2 (07:02→15:35)
[2019-07-22] MEDS: Lisinopril 20 MG TABLET PO SCH (08:41)
[2019-07-22] MEDS: Nicotine 21 MG PATCH.TD24 TD SCH (08:41)
[2019-07-22] MEDS: *HR* LORazepam 0.5 MG TABLET PO PRN (08:41)
[2019-07-22] MEDS: Gabapentin 300 MG CAPSULE PO SCH (08:41)
[2019-07-22] MEDS: Folic Acid 1 MG TABLET PO SCH (08:41)
[2019-07-22] MEDS: Furosemide 40 MG TABLET PO SCH (08:41)
[2019-07-22] MEDS: Aspirin Enteric Coated 81 MG Tablet PO SCH (08:41)
[2019-07-22] MEDS: Thiamine (B-1) 100 MG in D5% in Water 50 ML IVPB SCH (09:03)
[2019-07-22] MEDS: Ibuprofen 400 MG TABLET PO PRN (10:28)
[2019-07-22] MEDS ORDERED: 0.9 % Sodium Chloride 500 ML IVC ONE (13:22)
[2019-07-22 14:35] VITALS: BP 100/68
--- NOTE | 2019-07-22 14:45 | Discharge Summary ---
- NOTES TO OUTPATIENT PROVIDER Notes to Outpatient Provider: Came with the generaziled weakness, stroke workup negaitveDanyell Andujar has alcoholic neuropathy. Will need follow-up with Dr. Carter in 2-3 weeks for EMG nerve conduction studies. Date of Encounter: 07/22/19 Time of Encounter: 08:15 - Discharge Diagnosis (1) Weakness of distal arms and legs Priority: Primary Status: Acute (2) Chest pain Priority: Secondary Status: Acute Qualifiers: Chest pain type: unspecified Qualified Code(s): R07.9 - Chest pain, unspecified (3) UTI (urinary tract infection) Priority: Secondary Status: Acute Qualifiers: Urinary tract infection type: site unspecified Hematuria presence: without hematuria Qualified Code(s): N39.0 - Urinary tract infection, site not specified (4) Nausea Priority: Secondary Status: Acute (5) Smoking addiction Priority: Secondary Status: Acute (6) Alcohol abuse Priority: Secondary Status: Acute (7) Anemia Priority: Secondary Status: Acute Qualifiers: Anemia type: folate deficiency Folate deficiency anemia type: drug-induced Qualified Code(s): D52.1 - Drug-induced folate deficiency anemia (8) Hypokalemia Priority: Secondary Status: Acute (9) Hypomagnesemia Priority: Secondary Status: Acute (10) AAA (abdominal aortic aneurysm) Priority: Secondary Status: Acute Qualifiers: Presence of rupture: without rupture Qualified Code(s): I71.4 - Abdominal aortic aneurysm, without rupture (11) Peripheral neuropathy Priority: Secondary Status: Acute Qualifiers: 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 Lock is a 53 year old female with a past medical history significant for GERD, hypertension, tobacco abuse, alcohol abuse, presented to the hospital because of chest pain, pain and weakness in the upper and lower extremities, 1 year duration, progressively worsening. Patient initially mentioned that she has not been drinking alcohol for a while but later on revealed that she has been drinking 15 shots in the week for almost 1-2 years. Her son and symptoms were initially concerning for stroke. CT scan of the head and neck were negative. CT angiogram was also negative for any high grade stenosis or aneurysm. Patient was admitted for further management with a neurology consult. MRI of the brain and spine was also obtained which did not reveal any acute changes, only had mild degenerative changes in the spine. After further history was obtained, it was assumed that patient signed and symptoms are most likely because of alcohol abuse. She was diagnosed with alcoholic neurpathy and was started on gabapentin, 300 mg BID. Neurology recommended to get EMG and nerve conduction studies done as an outpatient in 2-3 weeks. PT/OT recommended the rehabilitation for the patient and the patient is being transferred to [facility] today. Today, patient was feeling dizzy, her blood pressure was found to be 94/67. It was likely because of dehydration and low fluid intake. She was given 500 mg, saline bolus. Repeat blood pressure was 100/68. Patient is feeling better now. Denies any other complaints. At the time of the admission, patient's urine was positive for infection. Urine culture revealed Escherichia coli. Patient was given 5 days of IV antibiotics in the hospital. No further continuation declined. Discussed with the patient to quit smoking and alcohol abuse. Patient will be continued on folic acid and thiamine on discharge. - Time Spent with Patient Total time spent providing and/or coordinating discharge services: 39 minuts - Discharge Medications Prescriptions: New Folic Acid 1 mg PO DAILY #30 tablet Gabapentin [Neurontin] 300 mg PO BID #14 capsule Nicotine Patch [Nicoderm] 21 mg TD DAILY patch.td24 Thiamine (B-1) [Vitamin B-1] 100 mg PO DAILY #30 tablet Continued Aspirin [Lo-Dose Aspirin EC] 81 mg PO DAILY Potassium Chloride [K-Tab ER] 20 meq PO DAILY Furosemide [Lasix] 40 mg PO QAM Lisinopril [Zestril] 40 mg PO DAILY Promethazine [Phenergan] 25 mg PO Q6HR PRN PRN Reason: UPSET STOMACH/NAUSEA Pantoprazole Sodium [Protonix] 40 mg PO BID LORazepam [Ativan] 0.5 mg PO BID PRN 7 Days #14 tablet PRN Reason: Anxiety Discontinued Escitalopram [Lexapro] 20 mg PO DAILY Home Medications: Aspirin [Lo-Dose Aspirin EC] 81 mg PO DAILY 07/17/19 [History] Furosemide [Lasix] 40 mg PO QAM 07/17/19 [History] Lisinopril [Zestril] 40 mg PO DAILY 07/17/19 [History] Pantoprazole Sodium [Protonix] 40 mg PO BID 07/17/19 [History] Potassium Chloride [K-Tab ER] 20 meq PO DAILY 07/17/19 [History] Promethazine [Phenergan] 25 mg PO Q6HR PRN 07/17/19 [History] Folic Acid 1 mg PO DAILY #30 tablet 07/22/19 [Rx] Gabapentin [Neurontin] 300 mg PO BID #14 capsule 07/22/19 [Rx] LORazepam [Ativan] 0.5 mg PO BID PRN 7 Days #14 tablet 07/22/19 [Rx] Nicotine Patch [Nicoderm] 21 mg TD DAILY patch.td24 07/22/19 [Rx] Thiamine (B-1) [Vitamin B-1] 100 mg PO DAILY #30 tablet 07/22/19 [Rx] Allergies/Adverse Reactions: Allergy/AdvReac Type Severity Reaction Status Date / Time citalopram [From Celexa] Allergy Vomiting Verified 07/17/19 11:21 duloxetine [From Cymbalta] Allergy Vomiting Verified 07/17/19 11:21 Date of admission: 07/17/19 17:40 Primary care physician: Kaleigh Morrison CNP Consults: 07/17/19 18:00 Consult to Neurology [CONS] Routine Consulting Provider: Neurology [facility] Reason for Consult: Weakness and dizziness, concerns for the TIA Call Completed: No 07/17/19 18:17 Consult to Occupational Therapy [CONS] Routine Comment: Evaluate, develop and implement POC Reason for Consult: Weakness of arms and legs Does patient have active BEDREST order?: No Is patient medically & hemodynamically stable?: Yes Patient assessed for mobility or mobilized this visit?: No Consult to Physical Therapy [CONS] Routine Comment: Evaluate, develop and implement POC Reason for Consult: Weakness of the arms and legs Does patient have active BEDREST order?: No Is patient medically & hemodynamically stable?: Yes Patient assessed for mobility or mobilized this visit?: No 07/18/19 10:54 Consult to [employer]rel Straight[employer] [CONS] Routine Reason for SW Consult: needs rehab placement per pt/ot. - Constitutional Vitals: Temp Pulse Resp BP Pulse Ox 97.3 F L 106 17 100/68 100 07/22/19 11:51 07/22/19 12:52 07/22/19 12:52 07/22/19 14:34 07/22/19 11:51 Exam: General:Alertt oriented, no physical distress, able to follow commands. Respiratory: Normal vesicular breathing, no added sounds, breathing equal in both sides. CVS: Normal heart sounds, no murmurs, regular rhthm, no edema Extremities: No peripheral edema, peripheral pulses intact. Lymph nodes: No lymphadenopathy Gastrointestinal: Soft, nontender abdomen, normal abdominal sounds. No distention noted. Genitourinary: No paravertebral tenderness. Skin: No rash, ulcers or wound. Neurological: Alert and oriented. No focal deficits. Cranial nerves II-XII intact. - Patient Status Disposition: Transfer SNF Condition: Good - Discharge Instructions Follow Up With: Kaleigh Morrison CNP [Primary Care Provider] - 07/24/19 12:00 pm - Diet and Activity Activity: as per physical therapy Diet: advance to your usual diet
--- NOTE | 2019-07-22 15:03 | Physician Discharge Referral ---
ExtendedCare Referral Info Institutional Level of Care: Skilled - Diagnosis (1) Weakness of distal arms and legs Priority: Primary Status: Acute (2) Chest pain Priority: Secondary Status: Acute (3) UTI (urinary tract infection) Priority: Secondary Status: Acute (4) Nausea Priority: Secondary Status: Acute (5) Smoking addiction Priority: Secondary Status: Acute (6) Alcohol abuse Priority: Secondary Status: Acute (7) Anemia Priority: Secondary Status: Acute (8) Hypokalemia Priority: Secondary Status: Acute (9) Hypomagnesemia Priority: Secondary Status: Acute (10) AAA (abdominal aortic aneurysm) Priority: Secondary Status: Acute (11) Peripheral neuropathy Priority: Secondary Status: Acute (12) Hypertension Priority: Secondary Status: Acute - Transfer Medications Prescriptions: LORazepam [Ativan] 0.5 mg PO BID PRN 7 Days #14 tablet PRN Reason: Anxiety Folic Acid 1 mg PO DAILY #30 tablet Gabapentin [Neurontin] 300 mg PO BID #14 capsule Thiamine (B-1) [Vitamin B-1] 100 mg PO DAILY #30 tablet Home Medications: Aspirin [Lo-Dose Aspirin EC] 81 mg PO DAILY 07/17/19 [History] Furosemide [Lasix] 40 mg PO QAM 07/17/19 [History] Lisinopril [Zestril] 40 mg PO DAILY 07/17/19 [History] Pantoprazole Sodium [Protonix] 40 mg PO BID 07/17/19 [History] Potassium Chloride [K-Tab ER] 20 meq PO DAILY 07/17/19 [History] Promethazine [Phenergan] 25 mg PO Q6HR PRN 07/17/19 [History] Folic Acid 1 mg PO DAILY #30 tablet 07/22/19 [Rx] Gabapentin [Neurontin] 300 mg PO BID #14 capsule 07/22/19 [Rx] LORazepam [Ativan] 0.5 mg PO BID PRN 7 Days #14 tablet 07/22/19 [Rx] Nicotine Patch [Nicoderm] 21 mg TD DAILY patch.td24 07/22/19 [Rx] Thiamine (B-1) [Vitamin B-1] 100 mg PO DAILY #30 tablet 07/22/19 [Rx] Allergies/Adverse Reactions: Allergy/AdvReac Type Severity Reaction Status Date / Time citalopram [From Celexa] Allergy Vomiting Verified 07/17/19 11:21 duloxetine [From Cymbalta] Allergy Vomiting Verified 07/17/19 11:21 - Respiratory Orders Smoking Cessation: Smoking cessation has been advised. For more information, call the [place] Tobacco Quit Line at 5-373-FHUL-NOW. CERTIFICATION: I certify that the transfer of the above named patient to an Extended Care Facility is necessary for the continuing treatment of the diagnosis listed. The above information is true and accurate reflection of patient's current conditi on. Confidential - Redisclosure prohibited without a patient's written consent.
[2019-07-22] MEDS: cefTRIAXone 1,000 MG in Water for inj. (sterile) 10 ML IVPB SCH (15:27)
== END 2019-07-22 17:58 ==
LOC: EMEROOARM 11:16 → 3BNU 11:16 → SUATTDRO 17:40 → 3BNU 18:44
PROVIDERS: ADMIT Internal Medicine Nephrology; ATTEND Internal Medicine

== ENCOUNTER 2020-04-27 11:00 | Observation (INO) ==
[2020-04-27] MEDS ORDERED: Isovue-370 500 ML BOTTLE IVP ONE (11:44)
[2020-04-27 11:50] LABS: Hematocrit 28.4 % (35.3-44.9); Hemoglobin 8.8 g/dL (11.5-15.4); Mean Corpuscular Hemoglobin 29.3 pg (28.0-33.3); Mean Corpuscular Volume 94.7 fL (83.0-100.0); Mean Platelet Volume 9.9 fL (9.4-12.4); Platelet Count 182 K/mcL (140-400); Red Cell Distribution Width 13.3 % (11.5-14.5); White Blood Count 6.9 K/mcL (4.3-11.1)
[2020-04-27 12:01] LABS: INR 1.2; Prothrombin Time 14.1 Seconds (9.4-12.1)
[2020-04-27 12:03] LABS: Activated Partial Thrombo Time 28.9 Seconds (26.0-36.0)
[2020-04-27] MEDS ORDERED: cefTRIAXone 1,000 MG in Water for inj. (sterile) 10 ML IVP ONE (12:11)
[2020-04-27] MEDS ORDERED: Azithromycin 500 MG in D5% in Water 250 ML IVPB ONE (12:11)
[2020-04-27] MEDS ORDERED: 0.9 % Sodium Chloride 1,000 ML IVC ONE ×3 (12:11→14:48)
[2020-04-27 12:15] LABS: BUN/Creatinine Ratio 19 (6-26); Blood Urea Nitrogen 19 mg/dL (6-20); Calcium 8.5 mg/dL (8.6-10.3); Carbon Dioxide 22 mEq/L (23-29); Chloride 100 mEq/L (98-107); Glucose 133 mg/dL (70-105); Osmolality,Calculated 278 (280-300); Potassium 3.9 mEq/L (3.5-5.1); Sodium 132 mEq/L (136-145); eGFR For African Americans > 60 (> 60); eGFR For Non-African Americans 58 (> 60)
[2020-04-27 12:16] LABS: Troponin I < 0.03 ng/mL (< 0.04)
[2020-04-27 12:23] LABS: Lymphocytes # 1.2 K/mcL (0.6-4.6); Monocytes # 0.1 K/mcL (0.0-1.3); Neutrophils # 5.5 K/mcL (1.6-8.9)
[2020-04-27 12:24] LABS: Bilirubin,Urine Small (Negative); Blood,Urine Negative (Negative); Clarity,Urine Clear (Clear); Color,Urine Dark Yellow (Yellow); Glucose,Urine (UA) Normal (Normal); Ketones,Urine Negative (Negative); Leukocyte Esterase,Urine Negative (Negative); Nitrite,Urine Negative (Negative); PH,Urine 5.5 pH Units (5.0-8.0); Protein,Urine 30 mg/dL (Neg-Trace); Specific Gravity,Urine 1.025 (1.010-1.025); Urobilinogen,Urine Normal (Normal)
[2020-04-27 12:24] LABS: Platelet Estimate Normal (Normal); Polychromasia 1+ (Not Present)
[2020-04-27 12:26] LABS: Hyaline Casts,Urine Few per lpf (None-Few); Squamous Epithelial Cell,Urine Many per lpf (None-Few)
[2020-04-27 12:41] LABS: Bacteria,Urine Few per hpf (None-Few)
[2020-04-27 12:42] LABS: RBC,Urine 0-3 per hpf (0-3)
[2020-04-27 13:23] LABS: Alanine Aminotransferase 12 Units/L (7-52); Albumin 3.5 g/dL (3.5-5.7); Albumin/Globulin Ratio 1.3 (1.1-2.2); Alkaline Phosphatase 71 Units/L (34-104); Aspartate Amino Transferase 13 Units/L (13-39); Bilirubin,Direct 0.2 mg/dL (0.0-0.2); Bilirubin,Indirect 0.4 mg/dL (0.0-1.0); Bilirubin,Total 0.6 mg/dL (0.3-1.0); Globulin 2.8 g/dL (2.4-3.5); Total Protein 6.3 g/dL (6.4-8.9)
[2020-04-27 13:48] LABS: Ferritin 63 ng/mL (10-120)
[2020-04-27] MEDS ORDERED: Naloxone 0.4 MG/ML INJ IVP PRN (15:23)
[2020-04-27] MEDS ORDERED: Ondansetron 4 MG/2 ML VIAL IVP PRN (15:23)
[2020-04-27] MEDS ORDERED: Ipratropium/Albuterol Neb 3 ML IH PRN (15:52)
[2020-04-27 16:55] LABS: Iron < 10 mcg/dL (50-170); Thyroid Stimulating Hormone 1.557 mcIU/mL (0.340-5.600); Transferrin 245 mg/dL (203-362)
[2020-04-27 17:01] LABS: Folate 14.7 ng/mL (3.0-16.0)
[2020-04-27 17:24] LABS: Vitamin B12 > 1500 pg/mL (250-1100)
[2020-04-27] MEDS: Iron Sucrose Complex 200 MG in 0.9 % Sodium Chloride 100 ML IVPB SCH (18:55)
[2020-04-27] MEDS ORDERED: Acetaminophen 325 MG TABLET PO ONE (20:11)
[2020-04-27 20:33] LABS: Hematocrit 27.9 % (35.3-44.9); Hemoglobin 8.5 g/dL (11.5-15.4)
[2020-04-27] MEDS: 0.9 % Sodium Chloride 1,000 ML IVC SCH (21:27)
[2020-04-27] MEDS: ALPRAZolam 0.5 MG TABLET PO PRN (21:29)
[2020-04-28 01:10] LABS: Hematocrit 26.4 % (35.3-44.9); Mean Corpuscular HGB Conc 30.3 g/dL (31.6-35.5); Mean Corpuscular Hemoglobin 28.9 pg (28.0-33.3); Mean Corpuscular Volume 95.3 fL (83.0-100.0); Mean Platelet Volume 9.9 fL (9.4-12.4); Platelet Count 184 K/mcL (140-400); Red Blood Count 2.77 M/mcL (3.82-4.97); Red Cell Distribution Width 13.3 % (11.5-14.5); White Blood Count 6.4 K/mcL (4.3-11.1)
[2020-04-28 01:29] LABS: BUN/Creatinine Ratio 19 (6-26); Blood Urea Nitrogen 13 mg/dL (6-20); Calcium 8.3 mg/dL (8.6-10.3); Carbon Dioxide 23 mEq/L (23-29); Chloride 105 mEq/L (98-107); Glucose 123 mg/dL (70-105); Magnesium 1.8 mg/dL (1.6-2.6); Osmolality,Calculated 279 (280-300); Potassium 3.7 mEq/L (3.5-5.1); Sodium 134 mEq/L (136-145); eGFR For African Americans > 60 (> 60); eGFR For Non-African Americans > 60 (> 60)
[2020-04-28 01:41] LABS: Eosinophils # 0.3 K/mcL (0.0-0.6); Lymphocytes # 0.9 K/mcL (0.6-4.6); Monocytes # 0.5 K/mcL (0.0-1.3); Neutrophils # 4.7 K/mcL (1.6-8.9); Platelet Estimate Normal (Normal)
[2020-04-28] MEDS ORDERED: Acetaminophen 325 MG TABLET PO ONE (06:34)
[2020-04-28] MEDS: carvediloL 25 MG TABLET PO SCH ×2 (08:43→15:42)
[2020-04-28] MEDS: Gabapentin 300 MG CAPSULE PO SCH ×3 (08:43→20:32)
[2020-04-28] MEDS: BuPROPion SR (12 HR) 100 MG TABLET PO SCH (08:43)
[2020-04-28] MEDS: Iron Sucrose Complex 200 MG in 0.9 % Sodium Chloride 100 ML IVPB SCH (08:44)
[2020-04-28] MEDS: cefTRIAXone 1,000 MG in Water for inj. (sterile) 10 ML IVP SCH (08:45)
[2020-04-28] MEDS: Folic Acid 1 MG TABLET PO SCH (08:47)
[2020-04-28] MEDS ORDERED: Azithromycin 500 MG in 0.9 % Sodium Chloride 250 ML IVPB SCH (12:00)
[2020-04-28 14:17] LABS: Adenovirus F 40/41 PCR Not detected (Not detect); Astrovirus PCR Not detected (Not detect); C.difficile Toxin A/B Gene PCR Not detected (Not detect); Campylobacter by PCR Not detected (Not detect); Cryptosporidium by PCR Not detected (Not detect); Cyclospora cayetanensis PCR Not detected (Not detect); E. coli O157 by PCR Not detected (Not detect); Entamoeba histolytica PCR Not detected (Not detect); Enteroaggregative E.coli(EAEC) Not detected (Not detect); Enteropathogenic E.coli(EPEC) Not detected (Not detect); Enterotoxigenic E.coli (ETEC) Not detected (Not detect); Giardia lamblia PCR Not detected (Not detect); Norovirus GI/GII PCR Not detected (Not detect); Plesiomonas shigelloides PCR Not detected (Not detect); Rotavirus A PCR Not detected (Not detect); Salmonella PCR Not detected (Not detect); Sapovirus PCR Not detected (Not detect); Shig/EnteroinvasiveE coli EIEC Not detected (Not detect); Shigalike tox-prod E coli STEC Not detected (Not detect); Vibrio PCR Not detected (Not detect); Vibrio cholerae PCR Not detected (Not detect); Yersinia enterocolitica PCR Not detected (Not detect)
[2020-04-28] MEDS: 0.9 % Sodium Chloride 1,000 ML IVC SCH (15:42)
[2020-04-28] MEDS: ALPRAZolam 0.5 MG TABLET PO PRN (20:32)
[2020-04-29] MEDS ORDERED: Acetaminophen 325 MG TABLET PO ONE (03:47)
[2020-04-29 05:27] LABS: Basophils % 0.5 %; Eosinophils # 0.1 K/mcL (0.0-0.6); Eosinophils % 1.6 %; Hemoglobin 8.1 g/dL (11.5-15.4); Immature Granulocytes % 2.1 % (0-4); Lymphocytes % 12.7 %; Mean Corpuscular HGB Conc 31.2 g/dL (31.6-35.5); Mean Corpuscular Volume 93.2 fL (83.0-100.0); Mean Platelet Volume 9.7 fL (9.4-12.4); Monocytes # 0.8 K/mcL (0.0-1.3); Nucleated Red Blood Cells 0.4 /100 WBC (0); Platelet Count 217 K/mcL (140-400); Red Blood Count 2.79 M/mcL (3.82-4.97); Red Cell Distribution Width 13.3 % (11.5-14.5); Segmented Neutrophils % 73.1 %; White Blood Count 8.2 K/mcL (4.3-11.1)
[2020-04-29 07:17] VITALS: BP 165/98
[2020-04-29 07:17] LABS: BUN/Creatinine Ratio 14 (6-26); Blood Urea Nitrogen 7 mg/dL (6-20); Calcium 8.8 mg/dL (8.6-10.3); Carbon Dioxide 24 mEq/L (23-29); Chloride 105 mEq/L (98-107); Glucose 115 mg/dL (70-105); Magnesium 1.7 mg/dL (1.6-2.6); Osmolality,Calculated 283 (280-300); Potassium 3.6 mEq/L (3.5-5.1); Sodium 137 mEq/L (136-145); eGFR For African Americans > 60 (> 60); eGFR For Non-African Americans > 60 (> 60)
[2020-04-29] MEDS: cefTRIAXone 1,000 MG in Water for inj. (sterile) 10 ML IVP SCH (08:44)
[2020-04-29] MEDS: Folic Acid 1 MG TABLET PO SCH (08:44)
[2020-04-29] MEDS: Gabapentin 300 MG CAPSULE PO SCH (08:44)
[2020-04-29] MEDS: BuPROPion SR (12 HR) 100 MG TABLET PO SCH (08:44)
[2020-04-29] MEDS: carvediloL 25 MG TABLET PO SCH (08:52)
[2020-04-29] MEDS: Iron Sucrose Complex 200 MG in 0.9 % Sodium Chloride 100 ML IVPB SCH (08:52)
== END 2020-04-29 10:41 | disposition home or self-care (01) ==
LOC: EMEROOARM 11:00 → 2ANU 11:00 → SUATTDRO 16:28 → 2ANU 18:05
PROVIDERS: ADMIT Student in an Organized Health Care Education/Training Program; ATTEND Internal Medicine

== ENCOUNTER 2021-02-01 04:39 | Inpatient (IN) ==
[2021-02-01] MEDS ORDERED: Ipratropium/Albuterol Neb 3 ML IH ONE (04:57)
[2021-02-01 05:08] LABS: Basophils # 0.1 K/mcL (0.0-0.2); Basophils % 0.5 %; Eosinophils # 0.2 K/mcL (0.0-0.6); Eosinophils % 1.7 %; Hematocrit 33.8 % (35.3-44.9); Hemoglobin 10.5 g/dL (11.5-15.4); Lymphocytes # 1.7 K/mcL (0.6-4.6); Lymphocytes % 12.5 %; Mean Corpuscular HGB Conc 31.1 g/dL (31.6-35.5); Mean Corpuscular Hemoglobin 27.3 pg (28.0-33.3); Mean Corpuscular Volume 87.8 fL (83.0-100.0); Mean Platelet Volume 9.7 fL (9.4-12.4); Monocytes # 1.2 K/mcL (0.0-1.3); Monocytes % 8.8 %; Neutrophils # 10.2 K/mcL (1.6-8.9); Nucleated Red Blood Cells 0.1 /100 WBC (0); Platelet Count 230 K/mcL (140-400); Red Blood Count 3.85 M/mcL (3.82-4.97); Red Cell Distribution Width 15.4 % (11.5-14.5); Segmented Neutrophils % 75.5 %; White Blood Count 13.5 K/mcL (4.3-11.1)
[2021-02-01 05:17] LABS: INR 1.1; Prothrombin Time 13.2 Seconds (9.4-12.1)
[2021-02-01] MEDS ORDERED: Isovue-370 500 ML BOTTLE IVP ONE (05:21)
[2021-02-01 05:30] LABS: Alanine Aminotransferase 13 Units/L (7-52); Albumin/Globulin Ratio 1.1 (1.1-2.2); Alkaline Phosphatase 100 Units/L (34-104); Aspartate Amino Transferase 12 Units/L (13-39); BUN/Creatinine Ratio 7 (6-26); Bilirubin,Direct 0.2 mg/dL (0.0-0.2); Bilirubin,Indirect 0.3 mg/dL (0.0-1.0); Bilirubin,Total 0.5 mg/dL (0.3-1.0); Blood Urea Nitrogen 5 mg/dL (6-20); Calcium 9.2 mg/dL (8.6-10.3); Carbon Dioxide 24 mEq/L (23-29); Chloride 103 mEq/L (98-107); Globulin 3.7 g/dL (2.4-3.5); Glucose 110 mg/dL (70-105); Osmolality,Calculated 286 (280-300); Potassium 3.8 mEq/L (3.5-5.1); Sodium 139 mEq/L (136-145); Total Protein 7.7 g/dL (6.4-8.9); eGFR For African Americans > 60 (> 60); eGFR For Non-African Americans > 60 (> 60)
[2021-02-01 05:34] LABS: Troponin I 0.04 ng/mL (< 0.04)
[2021-02-01] MEDS ORDERED: *HR* OxyCODONE Immed Rel 5 MG TABLET PO ONE ×2 (05:44→15:33)
[2021-02-01] MEDS ORDERED: Benzonatate 100 MG CAPSULE PO ONE (05:45)
[2021-02-01] MEDS ORDERED: cefTRIAXone 1,000 MG in 0.9 % Sodium Chloride Mini Bag 100 ML IVPB ONE (05:54)
[2021-02-01] MEDS ORDERED: Azithromycin 500 MG in 0.9 % Sodium Chloride 250 ML IVPB ONE (05:55)
[2021-02-01] MEDS ORDERED: Aspirin 81 MG TAB.CHEW PO ONE (07:16)
[2021-02-01 09:05] LABS: Adenovirus Not Detected (Not Detect); Bordetella Pertussis Not Detected (Not Detect); Chlamydophila pneumoniae Not Detected (Not Detect); Coronavirus 229E Not Detected (Not Detect); Coronavirus HKU1 Not Detected (Not Detect); Coronavirus NL63 Not Detected (Not Detect); Coronavirus OC43 Not Detected (Not Detect); Human Metapneumovirus Not Detected (Not Detect); Human Rhinovirus/Enterovirus Not Detected (Not Detect); Influenza A Subtype 2009 H1 Not Detected (Not Detect); Influenza B Not Detected (Not Detect); Mycoplasma pneumoniae Not Detected (Not Detect); Parainfluenza Virus 1 Not Detected (Not Detect); Parainfluenza Virus 2 Not Detected (Not Detect); Parainfluenza Virus 3 Not Detected (Not Detect); Parainfluenza Virus 4 Not Detected (Not Detect); Respiratory Syncytial Virus Not Detected (Not Detect); SARS-CoV-2 Not Detected (Not Detect)
[2021-02-01] MEDS ORDERED: Naloxone 0.4 MG/ML INJ IVP PRN (09:30)
[2021-02-01] MEDS ORDERED: Ondansetron 4 MG/2 ML VIAL IVP PRN (09:30)
[2021-02-01 11:05] LABS: C-Reactive Protein 130 mg/L (Less than 10); Ferritin 88 ng/mL (10-120); Lactate Dehydrogenase 244 Units/L (140-271)
[2021-02-01] MEDS: Ipratropium 1 PUFF INHALER IH SCH ×3 (11:16→20:20)
[2021-02-01] MEDS: Acetaminophen/Butalbital/CaffeineTABLET PO PRN ×2 (11:25→19:43)
[2021-02-01] MEDS ORDERED: *HR* HYDROcodone/Acet 5/325 mg TABLET PO ONE (15:22)
[2021-02-01] MEDS: carvediloL 25 MG TABLET PO SCH (17:03)
[2021-02-01] MEDS: Dexamethasone 4 MG/ML VIAL IVP SCH (17:04)
[2021-02-01] MEDS: Benzonatate 100 MG CAPSULE PO SCH ×2 (17:04→23:12)
[2021-02-01] MEDS: cloNIDine HCL 0.1 MG TABLET PO SCH (19:42)
[2021-02-01] MEDS: BuPROPion SR (12 HR) 150 MG TABLET PO SCH (19:42)
[2021-02-01] MEDS: *HR* Acetylcysteine 20% 600 MG/3 ML ORAL SYRINGE PO SCH (19:43)
[2021-02-01] MEDS ORDERED: Gabapentin 400 MG CAPSULE PO ONE (22:00)
[2021-02-01] MEDS ORDERED: Melatonin 3 MG TABLET PO ONE (22:55)
[2021-02-02] MEDS: Ipratropium 1 PUFF INHALER IH SCH ×7 (00:20→23:09)
[2021-02-02 03:59] LABS: Alanine Aminotransferase 10 Units/L (7-52); Albumin 3.9 g/dL (3.5-5.7); Alkaline Phosphatase 97 Units/L (34-104); Aspartate Amino Transferase 12 Units/L (13-39); BUN/Creatinine Ratio 14 (6-26); Bilirubin,Total 0.3 mg/dL (0.3-1.0); Blood Urea Nitrogen 7 mg/dL (6-20); Calcium 9.3 mg/dL (8.6-10.3); Carbon Dioxide 24 mEq/L (23-29); Chloride 102 mEq/L (98-107); Globulin 3.8 g/dL (2.4-3.5); Glucose 130 mg/dL (70-105); Osmolality,Calculated 282 (280-300); Potassium 4.1 mEq/L (3.5-5.1); Sodium 136 mEq/L (136-145); Total Protein 7.7 g/dL (6.4-8.9); eGFR For African Americans > 60 (> 60); eGFR For Non-African Americans > 60 (> 60)
[2021-02-02 04:00] LABS: Basophils % 0.4 %; Eosinophils % 0.2 %; Hematocrit 33.3 % (35.3-44.9); Hemoglobin 10.4 g/dL (11.5-15.4); Immature Granulocytes % 1.1 % (0-4); Lymphocytes % 11.9 %; Mean Corpuscular HGB Conc 31.2 g/dL (31.6-35.5); Mean Corpuscular Hemoglobin 27.4 pg (28.0-33.3); Mean Corpuscular Volume 87.9 fL (83.0-100.0); Mean Platelet Volume 10.3 fL (9.4-12.4); Monocytes # 0.7 K/mcL (0.0-1.3); Neutrophils # 6.6 K/mcL (1.6-8.9); Platelet Count 211 K/mcL (140-400); Red Blood Count 3.79 M/mcL (3.82-4.97); Segmented Neutrophils % 78.4 %; White Blood Count 8.4 K/mcL (4.3-11.1)
[2021-02-02] MEDS: *HR* Enoxaparin 40 MG/0.4 ML SYRINGE SQ SCH (04:58)
[2021-02-02] MEDS: Acetaminophen/Butalbital/CaffeineTABLET PO PRN ×3 (05:08→23:30)
[2021-02-02] MEDS: *HR* Acetylcysteine 20% 600 MG/3 ML ORAL SYRINGE PO SCH ×2 (08:29→19:45)
[2021-02-02] MEDS: Aspirin Enteric Coated 81 MG Tablet PO SCH (08:29)
[2021-02-02] MEDS: carvediloL 25 MG TABLET PO SCH ×2 (08:29→17:10)
[2021-02-02] MEDS: cloNIDine HCL 0.1 MG TABLET PO SCH ×2 (08:29→19:45)
[2021-02-02] MEDS: Dexamethasone 4 MG/ML VIAL IVP SCH (08:29)
[2021-02-02] MEDS: lisinopriL 10 MG TABLET PO SCH (08:30)
[2021-02-02] MEDS: BuPROPion SR (12 HR) 150 MG TABLET PO SCH ×2 (08:30→19:44)
[2021-02-02] MEDS: Cyanocobalamin (B-12) 1,000 MCG TABLET PO SCH (08:30)
[2021-02-02] MEDS: Benzonatate 100 MG CAPSULE PO SCH ×3 (08:30→19:44)
[2021-02-02] MEDS: Gabapentin 300 MG CAPSULE PO SCH ×2 (15:08→19:44)
[2021-02-02] MEDS ORDERED: Melatonin 3 MG TABLET PO ONE ×2 (20:04→21:25)
[2021-02-03] MEDS: Ipratropium 1 PUFF INHALER IH SCH ×6 (04:31→23:05)
[2021-02-03 05:18] LABS: Basophils # 0.1 K/mcL (0.0-0.2); Basophils % 0.7 %; Eosinophils # 0.2 K/mcL (0.0-0.6); Eosinophils % 2.1 %; Hematocrit 33.2 % (35.3-44.9); Hemoglobin 10.5 g/dL (11.5-15.4); Immature Granulocytes % 1.1 % (0-4); Lymphocytes # 2.3 K/mcL (0.6-4.6); Lymphocytes % 27.7 %; Mean Corpuscular HGB Conc 31.6 g/dL (31.6-35.5); Mean Corpuscular Hemoglobin 28.4 pg (28.0-33.3); Mean Corpuscular Volume 89.7 fL (83.0-100.0); Mean Platelet Volume 10.3 fL (9.4-12.4); Monocytes # 0.6 K/mcL (0.0-1.3); Monocytes % 7.1 %; Neutrophils # 5.1 K/mcL (1.6-8.9); Platelet Count 238 K/mcL (140-400); Segmented Neutrophils % 61.3 %; White Blood Count 8.3 K/mcL (4.3-11.1)
[2021-02-03] MEDS: *HR* Enoxaparin 40 MG/0.4 ML SYRINGE SQ SCH (05:29)
[2021-02-03 05:36] LABS: BUN/Creatinine Ratio 20 (6-26); Blood Urea Nitrogen 11 mg/dL (6-20); Carbon Dioxide 26 mEq/L (23-29); Chloride 103 mEq/L (98-107); Glucose 107 mg/dL (70-105); Osmolality,Calculated 284 (280-300); Potassium 3.7 mEq/L (3.5-5.1); Sodium 137 mEq/L (136-145); eGFR For African Americans > 60 (> 60); eGFR For Non-African Americans > 60 (> 60)
[2021-02-03] MEDS: Cyanocobalamin (B-12) 1,000 MCG TABLET PO SCH (08:12)
[2021-02-03] MEDS: lisinopriL 10 MG TABLET PO SCH (08:12)
[2021-02-03] MEDS: Benzonatate 100 MG CAPSULE PO SCH ×3 (08:12→21:35)
[2021-02-03] MEDS: Gabapentin 300 MG CAPSULE PO SCH ×3 (08:12→21:34)
[2021-02-03] MEDS: Aspirin Enteric Coated 81 MG Tablet PO SCH (08:12)
[2021-02-03] MEDS: cloNIDine HCL 0.1 MG TABLET PO SCH ×2 (08:13→21:36)
[2021-02-03] MEDS: *HR* Acetylcysteine 20% 600 MG/3 ML ORAL SYRINGE PO SCH ×2 (08:13→21:36)
[2021-02-03] MEDS: Dexamethasone 4 MG/ML VIAL IVP SCH (08:13)
[2021-02-03] MEDS: carvediloL 25 MG TABLET PO SCH ×2 (08:13→15:55)
[2021-02-03] MEDS: BuPROPion SR (12 HR) 150 MG TABLET PO SCH ×2 (08:13→21:34)
[2021-02-03] MEDS: Acetaminophen/Butalbital/CaffeineTABLET PO PRN ×2 (12:58→21:34)
[2021-02-03] MEDS ORDERED: Melatonin 3 MG TABLET PO PRN (21:07)
[2021-02-04] MEDS: Ipratropium 1 PUFF INHALER IH SCH ×2 (04:22→08:07)
[2021-02-04] MEDS: Acetaminophen/Butalbital/CaffeineTABLET PO PRN (04:44)
[2021-02-04] MEDS: *HR* Enoxaparin 40 MG/0.4 ML SYRINGE SQ SCH (04:45)
[2021-02-04 05:18] LABS: Basophils # 0.1 K/mcL (0.0-0.2); Basophils % 0.7 %; Eosinophils # 0.2 K/mcL (0.0-0.6); Eosinophils % 2.1 %; Hematocrit 33.9 % (35.3-44.9); Hemoglobin 10.5 g/dL (11.5-15.4); Immature Granulocytes % 2.2 % (0-4); Lymphocytes # 2.2 K/mcL (0.6-4.6); Lymphocytes % 28.3 %; Mean Corpuscular Hemoglobin 28.3 pg (28.0-33.3); Mean Corpuscular Volume 91.4 fL (83.0-100.0); Monocytes # 0.6 K/mcL (0.0-1.3); Monocytes % 7.3 %; Neutrophils # 4.6 K/mcL (1.6-8.9); Platelet Count 260 K/mcL (140-400); Red Blood Count 3.71 M/mcL (3.82-4.97); Red Cell Distribution Width 15.1 % (11.5-14.5); Segmented Neutrophils % 59.4 %; White Blood Count 7.7 K/mcL (4.3-11.1)
[2021-02-04 05:37] LABS: BUN/Creatinine Ratio 23 (6-26); Blood Urea Nitrogen 14 mg/dL (6-20); Calcium 8.9 mg/dL (8.6-10.3); Carbon Dioxide 28 mEq/L (23-29); Chloride 103 mEq/L (98-107); Glucose 101 mg/dL (70-105); Magnesium 1.8 mg/dL (1.6-2.6); Osmolality,Calculated 287 (280-300); Potassium 3.9 mEq/L (3.5-5.1); Sodium 138 mEq/L (136-145); eGFR For African Americans > 60 (> 60); eGFR For Non-African Americans > 60 (> 60)
[2021-02-04 05:39] LABS: % Iron Saturation 10 % (15-50); Iron 36 mcg/dL (50-170); Transferrin 252 mg/dL (203-362)
[2021-02-04 05:57] LABS: Ferritin 78 ng/mL (10-120)
[2021-02-04 06:02] LABS: Folate 6.1 ng/mL (3.0-16.0)
[2021-02-04 07:08] VITALS: BP 145/91
[2021-02-04] MEDS ORDERED: Acetaminophen 325 MG TABLET PO PRN (07:46)
[2021-02-04] MEDS: cloNIDine HCL 0.1 MG TABLET PO SCH (08:17)
[2021-02-04] MEDS: Gabapentin 300 MG CAPSULE PO SCH (08:17)
[2021-02-04] MEDS: Benzonatate 100 MG CAPSULE PO SCH (08:17)
[2021-02-04] MEDS: lisinopriL 10 MG TABLET PO SCH (08:18)
[2021-02-04] MEDS: BuPROPion SR (12 HR) 150 MG TABLET PO SCH (08:18)
[2021-02-04] MEDS: carvediloL 25 MG TABLET PO SCH (08:18)
[2021-02-04] MEDS: Cyanocobalamin (B-12) 1,000 MCG TABLET PO SCH (08:18)
[2021-02-04] MEDS: Aspirin Enteric Coated 81 MG Tablet PO SCH (08:18)
[2021-02-04] MEDS: Dexamethasone 4 MG/ML VIAL IVP SCH (08:19)
[2021-02-04 10:52] LABS: Angiotensin Converting Enzyme <5 U/L (9-67)
[2021-02-04 11:01] LABS: Serine Protease-3 Antibody 1 AU/mL (0-19)
[2021-02-04 11:02] LABS: ANA IgG by ELISA NONE DETECTED (None Detected)
== END 2021-02-04 10:58 | disposition home or self-care (01) | DRG 871 ==
LOC: 2NENU 04:39 → EMEROOARM 04:39 → SUATTDRO 09:11 → 2NENU 10:15
PROVIDERS: ADMIT Family Medicine; ATTEND Pharmacist

== ENCOUNTER 2021-02-15 17:23 | Inpatient (IN) ==
[2021-02-15] MEDS ORDERED: 0.9 % Sodium Chloride 2,000 ML ONE (17:42)
[2021-02-15] MEDS ORDERED: Ondansetron 4 MG/2 ML VIAL ONE (17:49)
[2021-02-15] MEDS: 0.9 % Sodium Chloride 1,000 ML IVC SCH ×2 (17:52→18:14)
[2021-02-15] MEDS ORDERED: Ondansetron 4 MG/2 ML VIAL IVP ONE (18:01)
[2021-02-15 18:22] LABS: Basophils # 0.1 K/mcL (0.0-0.2); Basophils % 0.8 %; Eosinophils # 0.2 K/mcL (0.0-0.6); Eosinophils % 1.7 %; Hematocrit 34.9 % (35.3-44.9); Hemoglobin 10.6 g/dL (11.5-15.4); Immature Granulocytes % 0.9 % (0-4); Lymphocytes # 1.6 K/mcL (0.6-4.6); Lymphocytes % 13.2 %; Mean Corpuscular HGB Conc 30.4 g/dL (31.6-35.5); Mean Corpuscular Hemoglobin 27.7 pg (28.0-33.3); Mean Corpuscular Volume 91.1 fL (83.0-100.0); Mean Platelet Volume 9.6 fL (9.4-12.4); Monocytes % 8.5 %; Neutrophils # 8.9 K/mcL (1.6-8.9); Platelet Count 345 K/mcL (140-400); Red Blood Count 3.83 M/mcL (3.82-4.97); Red Cell Distribution Width 15.3 % (11.5-14.5); Segmented Neutrophils % 74.9 %; White Blood Count 11.8 K/mcL (4.3-11.1)
[2021-02-15 18:24] LABS: VBG HCO3 26 mEq/L (21-27); VBG PCO2 54 mmHg (41-51); VBG PH 7.29 pH Units (7.32-7.42); VBG PO2 36 mmHg (25-50)
[2021-02-15] MEDS ORDERED: Isovue-370 500 ML BOTTLE IVP ONE (18:39)
[2021-02-15 18:41] LABS: BUN/Creatinine Ratio 22 (6-26); Blood Urea Nitrogen 22 mg/dL (6-20); Calcium 9.6 mg/dL (8.6-10.3); Carbon Dioxide 26 mEq/L (23-29); Chloride 103 mEq/L (98-107); Glucose 107 mg/dL (70-105); Osmolality,Calculated 288 (280-300); Potassium 5.2 mEq/L (3.5-5.1); Sodium 137 mEq/L (136-145); Troponin I 0.03 ng/mL (< 0.04); eGFR For African Americans > 60 (> 60); eGFR For Non-African Americans 57 (> 60)
[2021-02-15 20:02] LABS: Bilirubin,Urine Negative (Negative); Blood,Urine Negative (Negative); Clarity,Urine Clear (Clear); Color,Urine Colorless (Yellow); Glucose,Urine (UA) Normal (Normal); Hyaline Casts,Urine Few per lpf (None Seen); Ketones,Urine Negative (Negative); Leukocyte Esterase,Urine Trace (Negative); Nitrite,Urine Negative (Negative); PH,Urine 6.5 pH Units (5.0-8.0); Protein,Urine Negative (Neg-Trace); RBC,Urine 0-3 per hpf (0-3); Specific Gravity,Urine 1.029 (1.010-1.025); Urobilinogen,Urine Normal (Normal); WBC,Urine 0-3 per hpf (0-3)
[2021-02-15] MEDS ORDERED: Norepinephrine 4 MG/254 ML IV.SOLN IVC SCH (21:15)
[2021-02-15 21:55] LABS: Ethanol < 10 mg/dL (Less than 10)
[2021-02-15 22:08] LABS: Amphetamine Screen,Urine Negative ng/mL (Cutoff=1000); Barbiturate Screen,Urine Positive ng/mL (Cutoff=200); Benzodiazepines Screen,Urine Negative ng/mL (Cutoff=200); Cannabinoid Screen,Urine Positive ng/mL (Cutoff = 50); Cocaine Screen,Urine Negative ng/mL (Cutoff= 300); Opiate Screen,Urine Negative ng/mL (Cutoff=300); Phencyclidine Screen,Urine Negative ng/mL (Cutoff=25)
[2021-02-15] MEDS ORDERED: Naloxone 0.4 MG/ML INJ IVP PRN (23:06)
[2021-02-16] MEDS ORDERED: Ipratropium/Albuterol Neb 3 ML IH PRN ×2 (00:44→11:51)
[2021-02-16] MEDS ORDERED: Ipratropium 1 PUFF INHALER IH PRN ×2 (00:44→11:51)
[2021-02-16 00:48] LABS: Basophils # 0.1 K/mcL (0.0-0.2); Basophils % 0.6 %; Eosinophils # 0.2 K/mcL (0.0-0.6); Eosinophils % 1.2 %; Hematocrit 31.9 % (35.3-44.9); Hemoglobin 9.7 g/dL (11.5-15.4); Immature Granulocytes % 0.7 % (0-4); Lymphocytes # 2.4 K/mcL (0.6-4.6); Lymphocytes % 16.8 %; Mean Corpuscular HGB Conc 30.4 g/dL (31.6-35.5); Mean Corpuscular Hemoglobin 27.8 pg (28.0-33.3); Mean Corpuscular Volume 91.4 fL (83.0-100.0); Mean Platelet Volume 9.4 fL (9.4-12.4); Monocytes # 1.3 K/mcL (0.0-1.3); Monocytes % 9.5 %; Neutrophils # 10.1 K/mcL (1.6-8.9); Platelet Count 334 K/mcL (140-400); Red Blood Count 3.49 M/mcL (3.82-4.97); Red Cell Distribution Width 15.3 % (11.5-14.5); Segmented Neutrophils % 71.2 %; White Blood Count 14.1 K/mcL (4.3-11.1)
[2021-02-16] MEDS ORDERED: Acetaminophen 325 MG TABLET PO PRN ×2 (00:53→11:51)
[2021-02-16] MEDS ORDERED: Naloxone 0.4 MG/ML INJ IVP PRN ×2 (00:53→11:51)
[2021-02-16 01:03] LABS: BUN/Creatinine Ratio 28 (6-26); Blood Urea Nitrogen 22 mg/dL (6-20); Calcium 8.5 mg/dL (8.6-10.3); Carbon Dioxide 25 mEq/L (23-29); Chloride 107 mEq/L (98-107); Glucose 122 mg/dL (70-105); Osmolality,Calculated 289 (280-300); Potassium 4.2 mEq/L (3.5-5.1); Sodium 137 mEq/L (136-145); eGFR For African Americans > 60 (> 60); eGFR For Non-African Americans > 60 (> 60)
[2021-02-16] MEDS ORDERED: Perflutren Lipid Microsphere 1.3 ML in 0.9 % Sodium Chloride 8.7 ML IVP PRN (03:03)
[2021-02-16] MEDS ORDERED: Isovue-370 500 ML BOTTLE IVP ONE (03:08)
[2021-02-16] MEDS ORDERED: 0.9 % Sodium Chloride 1,000 ML IVC SCH ×2 (03:15→11:51)
[2021-02-16 04:49] LABS: Hematocrit 31.1 % (35.3-44.9); Hemoglobin 9.4 g/dL (11.5-15.4); Mean Corpuscular HGB Conc 30.2 g/dL (31.6-35.5); Mean Corpuscular Hemoglobin 27.6 pg (28.0-33.3); Mean Corpuscular Volume 91.2 fL (83.0-100.0); Mean Platelet Volume 9.2 fL (9.4-12.4); Platelet Count 308 K/mcL (140-400); Red Blood Count 3.41 M/mcL (3.82-4.97); Red Cell Distribution Width 15.4 % (11.5-14.5); White Blood Count 10.9 K/mcL (4.3-11.1)
[2021-02-16] MEDS ORDERED: *HR* Heparin 5,000 UNIT/ML VIAL SQ SCH (06:00)
[2021-02-16 07:12] LABS: Magnesium 1.7 mg/dL (1.6-2.6); Phosphorous 4.3 mg/dL (2.7-4.5)
[2021-02-16 07:17] LABS: Adenovirus Not Detected (Not Detect); Bordetella Pertussis Not Detected (Not Detect); Chlamydophila pneumoniae Not Detected (Not Detect); Coronavirus 229E Not Detected (Not Detect); Coronavirus HKU1 Not Detected (Not Detect); Coronavirus NL63 Not Detected (Not Detect); Coronavirus OC43 Not Detected (Not Detect); Human Metapneumovirus Not Detected (Not Detect); Human Rhinovirus/Enterovirus Not Detected (Not Detect); Influenza A Subtype 2009 H1 Not Detected (Not Detect); Influenza B Not Detected (Not Detect); Mycoplasma pneumoniae Not Detected (Not Detect); Parainfluenza Virus 1 Not Detected (Not Detect); Parainfluenza Virus 2 Not Detected (Not Detect); Parainfluenza Virus 3 Not Detected (Not Detect); Parainfluenza Virus 4 Not Detected (Not Detect); Respiratory Syncytial Virus Not Detected (Not Detect); SARS-CoV-2 Not Detected (Not Detect)
[2021-02-16] MEDS ORDERED: Hydrocortisone Sodium Succ 100 MG/2 ML VIAL IVP SCH (08:00)
[2021-02-16] MEDS ORDERED: Aspirin Enteric Coated 81 MG Tablet PO SCH (09:00)
[2021-02-16] MEDS: *HR* Heparin 5,000 UNIT/ML VIAL SQ SCH ×2 (14:27→21:02)
[2021-02-16] MEDS: BuPROPion SR (12 HR) 150 MG TABLET PO SCH (21:01)
[2021-02-17 00:53] LABS: Basophils % 0.6 %; Eosinophils # 0.1 K/mcL (0.0-0.6); Eosinophils % 1.8 %; Hematocrit 31.6 % (35.3-44.9); Hemoglobin 9.9 g/dL (11.5-15.4); Immature Granulocytes % 0.6 % (0-4); Lymphocytes % 27.8 %; Mean Corpuscular HGB Conc 31.3 g/dL (31.6-35.5); Mean Corpuscular Hemoglobin 27.9 pg (28.0-33.3); Mean Platelet Volume 9.3 fL (9.4-12.4); Monocytes # 0.6 K/mcL (0.0-1.3); Monocytes % 7.9 %; Neutrophils # 4.4 K/mcL (1.6-8.9); Platelet Count 238 K/mcL (140-400); Red Blood Count 3.55 M/mcL (3.82-4.97); Segmented Neutrophils % 61.3 %; White Blood Count 7.2 K/mcL (4.3-11.1)
[2021-02-17 01:01] LABS: VBG Ionized Calcium 1.14 mmol/L (1.15-1.35)
[2021-02-17 01:09] LABS: Alanine Aminotransferase 13 Units/L (7-52); Albumin 3.3 g/dL (3.5-5.7); Albumin/Globulin Ratio 1.2 (1.1-2.2); Alkaline Phosphatase 73 Units/L (34-104); Aspartate Amino Transferase 12 Units/L (13-39); BUN/Creatinine Ratio 21 (6-26); Bilirubin,Total 0.3 mg/dL (0.3-1.0); Blood Urea Nitrogen 11 mg/dL (6-20); Calcium 8.6 mg/dL (8.6-10.3); Carbon Dioxide 23 mEq/L (23-29); Chloride 107 mEq/L (98-107); Globulin 2.7 g/dL (2.4-3.5); Glucose 86 mg/dL (70-105); Magnesium 1.7 mg/dL (1.6-2.6); Osmolality,Calculated 285 (280-300); Phosphorous 3.4 mg/dL (2.7-4.5); Potassium 3.6 mEq/L (3.5-5.1); Sodium 138 mEq/L (136-145); eGFR For African Americans > 60 (> 60); eGFR For Non-African Americans > 60 (> 60)
[2021-02-17] MEDS: Acetaminophen/Butalbital/CaffeineTABLET PO PRN ×2 (02:41→11:54)
[2021-02-17] MEDS ORDERED: Ondansetron 4 MG/2 ML VIAL IVP PRN (02:46)
[2021-02-17] MEDS: *HR* Heparin 5,000 UNIT/ML VIAL SQ SCH (05:32)
[2021-02-17] MEDS: BuPROPion SR (12 HR) 150 MG TABLET PO SCH (08:36)
[2021-02-17] MEDS ORDERED: Aspirin Enteric Coated 81 MG Tablet PO SCH (09:00)
[2021-02-17] MEDS ORDERED: carvediloL 6.25 MG TABLET PO ONE (11:22)
[2021-02-17 15:03] VITALS: BP 118/84
== END 2021-02-17 15:59 | disposition home or self-care (01) | DRG 312 ==
LOC: EMEROOARM 17:23 → ICNU 17:23 → SUATTDRO 23:32 → ICNU 23:50 → 3ANU 02-16 17:42
PROVIDERS: ADMIT Internal Medicine; ATTEND Student in an Organized Health Care Education/Training Program